=== PATIENT | female | born 2000 | race Caucasian/White ===

== ENCOUNTER 2024-05-10 16:20 | Emergency (ER) | payer OTHER, SELFPAY ==
[2024-05-10 16:23] VITALS: BP 116/73; PULSE 77; TEMP 36.6; O2SAT 98; BMI 21.5
--- NOTE | 2024-05-10 16:39 | ED_ITS ---
HPI - Abdominal Pain General Chief Complaint: Abdominal Pain Stated Complaint: ABD PAIN Time Seen by Provider: 05/10/24 16:25 Source: patient Mode of arrival: walk-in History of Present Illness HPI narrative: Patient is a 23-year-old female presents to the emergency department for the evaluation of cramping and bleeding that began yesterday. She states she had an IUD removed at the beginning of this month with her [facility] [employer]CTOR at [facility]. She states she had minimal bleeding immediately after the IUD was removed. She states yesterday she developed pelvic cramping and spotting and today she noticed heavier bleeding. No significant passage of clots. She states she is developing a headache and feels dizzy. 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 She states she has no history of heavy periods. No medications taken prior to arrival. No urinary symptoms. She feels nauseous but has not had any vomiting Related Data Previous Rx's ?Medication ?Instructions ?Recorded ketorolac 10 mg tablet 10 mg PO TID PRN pain #10 tabs 05/10/24 ondansetron 4 mg disintegrating 4 mg PO Q6H PRN nausea and 05/10/24 tablet vomiting #12 tabs Allergies Allergy/AdvReac Type Severity Reaction Status Date / Time oxytocin [From Pitocin] Allergy Mild Unknown Verified 05/10/24 16:28 Review of Systems ROS Constitutional Denies: fever or chills Ears, nose, mouth, and throat Denies: throat pain or nasal congestion Respiratory Denies: shortness of breath Gastrointestinal Reports: abdominal pain and nausea; Denies: vomiting Genitourinary Reports: pelvic pain and vaginal bleeding; Denies: painful urination or vaginal discharge Musculoskeletal Denies: back pain or neck pain Integumentary/Breast Denies: rash Neurological Denies: numbness in extremities or weakness in extremities Hematologic/Lymphatic Denies: easy bruising or easy bleeding Exam Narrative Exam Narrative: Gen.: Awake, alert, in no distress Head: Normocephalic, atraumatic ENT: Moist mucous membranes Respiratory: No respiratory distress Gastrointestinal: Abdomen is soft, nondistended and nontender to palpation Extremities: Moves extremities equally Psych: Normal mood and affect Neuro: No focal neuro deficit Skin: Warm, dry, intact Constitutional Vital Signs, click to edit/add: Last Vital Signs Temp 98 F 08/31/24 16:23 Pulse 77 05/10/24 16:23 Resp 16 05/10/24 16:23 BP 116/73 05/10/24 16:23 Pulse Ox 98 05/10/24 16:23 Course Vital Signs Vital signs: Vital Signs Temperature 98 F 05/10/24 16:23 Pulse Rate 77 05/10/24 16:23 Respiratory Rate 16 05/10/24 16:23 Blood Pressure 116/73 05/10/24 16:23 Pulse Oximetry 98 05/10/24 16:23 Temperature 98 F 05/10/24 16:23 Pulse Rate 77 05/10/24 16:23 Respiratory Rate 16 05/10/24 16:23 Blood Pressure 116/73 05/10/24 16:23 Pulse Oximetry 98 05/10/24 16:23 MDM - Abdominal Pain MDM Narrative Medical decision making narrative: Abdomen is soft and benign in the ER with no pain out of proportion on exam. Patient is hemodynamically stable. Laboratory studies show normal white blood cell count, normal hemoglobin, negative test. Patient was given IV fluids, Toradol, Zofran. She was given an outpatient requisition for an ultrasound for home. She was strongly encouraged to follow-up with her regional engagement consultant and return to the ER if symptoms change or worsen. Suspect withdrawal bleeding from removal of IUD. SUPERVISED APC VISIT, PHYSICIAN ATTESTATION: Based on the medical record the care appears appropriate. ? Medical Records Attestation: I reviewed the patient's medical records. Lab Data Attestation: I reviewed the patient's lab results. Labs: Lab Results 05/10/24 Range/Units 16:40 WBC 8.8 (4.0-11.0) 10^3/uL RBC 4.26 (4.20-5.40) 10^6/uL Hgb 12.8 (12.0-16.0) g/dL Hct 38.6 (36.0-48.0) % MCV 90.6 (81.0-99.0) fL MCH 30.0 (26.7-34.0) pg MCHC 33.2 (29.9-35.2) g/dL RDW 13.0 (11.0-15.0) % Plt Count 219 (150-450) 10^3/uL MPV 10.8 (9.5-13.5) fL Neut % (Auto) 61.6 (43.0-75.0) % Lymph % (Auto) 31.7 (20.5-60.0) % [place] % (Auto) 5.0 (1.7-12.0) % Eos % (Auto) 1.1 (0.9-7.0) % Baso % (Auto) 0.5 (0.2-2.0) % Neut # (Auto) 5.4 (1.4-6.5) 10^3/uL Lymph # (Auto) 2.8 (1.2-3.8) 10^3/uL [place] # (Auto) 0.4 (0.3-0.8) 10^3/uL Eos # (Auto) 0.1 (0.0-0.7) 10^3/uL Baso # (Auto) 0.0 (0.0-0.1) 10^3/uL Abs Immat Gran (auto) 0.01 (0.00-0.03) 10^3/uL Imm/Tot Granulo (auto) 0.1 (0.0-0.5) % PT 11.3 (9.0-11.6) sec INR 1.07 Sodium 139 (136-145) mmol/L Potassium 3.6 (3.5-5.1) mmol/L Chloride 104 (98-107) mmol/L Carbon Dioxide 27.1 (21.0-32.0) mmol/L Anion Gap 11.5 BUN 9.0 (7.0-18.0) mg/dL Creatinine 0.72 (0.55-1.02) mg/dL Est GFR ( Amer) >60 (>=60) Est GFR (Non-Af Amer) >60 (>=60) BUN/Creatinine Ratio 12.5 Glucose 82 (74-106) mg/dL Calcium 8.4 L (8.5-10.1) mg/dL Serum HCG, Qual Negative (NEGATIVE) Urine Color Lt. yellow (YELLOW) Urine Clarity Sl cloudy (CLEAR) Urine pH 8.0 (5.0-9.0) Ur Specific Rentz 1.015 (1.005-1.025) Urine Protein Negative (NEG/TRACE) mg/dL Urine Glucose (UA) Negative (NEGATIVE) mg/dL Urine Ketones Negative (NEGATIVE) mg/dL Urine Occult Blood Large A (NEGATIVE) Urine Nitrite Negative (NEGATIVE) Urine Bilirubin Negative (NEGATIVE) Urine Urobilinogen 0.2 (0.2-1.0) EU/dL Ur Leukocyte Esterase Negative (NEGATIVE) Urine RBC 20-50 A (0-2) #/HPF Urine WBC 0-2 A (NONE SEEN) #/HPF Ur Squamous Epith Cells Many A (NONE/RARE) #/LPF Ur Transition Epith Cell Moderate A (NONE SEEN) #/LPF Urine Crystals Seen A (None Seen) #/HPF Amorphous Sediment Few Urine Bacteria Small A (NONE SEEN) #/HPF Urine Casts None seen (NONE SEEN) #/LPF Urine Mucus None seen (NONE SEEN) Ur Culture Indicated? Yes Discharge Plan Discharge Chief Complaint: Abdominal Pain Clinical Impression: Pelvic pain, Vaginal bleeding Patient Disposition: Home, Self-Care Time of Disposition Decision: 17:33 Condition: Good Prescriptions / Home Meds: New ketorolac 10 mg tablet 10 mg PO TID PRN (Reason: pain) Qty: 10 0RF ondansetron 4 mg tablet,disintegrating 4 mg PO Q6H PRN (Reason: nausea and vomiting) Qty: 12 0RF Print Language: Estonian Instructions: Pelvic Pain in Women (ED) Additional Instructions: Call [phone]. [phone] to schedule your ultrasound as an outpatient and follow up with your regional engagement consultant next week Referrals: [facility] [Primary Care Provider] - 1 week
[2024-05-10] MEDS: 0.9 % SODIUM CHLORIDE 1,000 ML 1000 ML IV (16:47)
[2024-05-10] MEDS: ONDANSETRON PF 4 MG/2 ML VIAL IV (16:48)
[2024-05-10] MEDS: KETOROLAC TROMETHAMINE 30 MG/ML VIAL IVP (16:50)
--- NOTE | 2024-05-10 16:55 | PC.NURSE ---
pt to ED with c/o lower abd pain/cramping since yesterday. had IUD removed and states no period in last approx 5 years. states heavy bleeding with clots today. mild nausea. denies dizziness or weakness. pt expresses concern for blood loss d/t hx of anemia. per pt.
[2024-05-10 16:59] LABS: Basophils Percent Auto 0.5 % (0.2-2.0); Eosinophils Absolute Auto 0.1 10^3/uL (0.0-0.7); Eosinophils Percent Auto 1.1 % (0.9-7.0); Hematocrit 38.6 % (36.0-48.0); Hemoglobin 12.8 g/dL (12.0-16.0); Immature Granulocytes Abs Auto 0.01 10^3/uL (0.00-0.03); Immature Granulocytes Pct Auto 0.1 % (0.0-0.5); Lymphocytes Absolute Auto 2.8 10^3/uL (1.2-3.8); Lymphocytes Percent Auto 31.7 % (20.5-60.0); Mean Corpuscular HGB Conc 33.2 g/dL (29.9-35.2); Mean Corpuscular Volume 90.6 fL (81.0-99.0); Mean Platelet Volume 10.8 fL (9.5-13.5); Monocytes Absolute Auto 0.4 10^3/uL (0.3-0.8); Neutrophils Absolute Auto 5.4 10^3/uL (1.4-6.5); Neutrophils Percent Auto 61.6 % (43.0-75.0); Platelet Count 219 10^3/uL (150-450); Red Blood Count 4.26 10^6/uL (4.20-5.40); White Blood Count 8.8 10^3/uL (4.0-11.0)
[2024-05-10 17:10] LABS: Anion Gap 11.5; BUN Creatinine Ratio 12.5; Calcium 8.4 mg/dL (8.5-10.1); Carbon Dioxide 27.1 mmol/L (21.0-32.0); Chloride 104 mmol/L (98-107); Estimated GFR (African America >60 (>=60); Estimated GFR (Non-African Ame >60 (>=60); Glucose 82 mg/dL (74-106); Potassium 3.6 mmol/L (3.5-5.1); Sodium 139 mmol/L (136-145)
[2024-05-10 17:14] LABS: Bilirubin Urine NEGATIVE (NEGATIVE); Blood Urine LARGE (NEGATIVE); Clarity Urine SL CLOUDY (CLEAR); Color Urine LT. YELLOW (YELLOW); Glucose Urine UA NEGATIVE (NEGATIVE); Ketones Urine NEGATIVE (NEGATIVE); Leukocyte Esterase Urine NEGATIVE (NEGATIVE); Nitrite Urine NEGATIVE (NEGATIVE); Protein Urine NEGATIVE (NEG/TRACE); Specific Gravity Urine 1.015 (1.005-1.025); Urobilinogen Urine 0.2 EU/dL (0.2-1.0)
[2024-05-10 17:16] LABS: Urine Microscopic Indicated YES
[2024-05-10 17:18] LABS: INR 1.07; Prothrombin Time 11.3 sec (9.0-11.6)
[2024-05-10 17:20] LABS: HCG Qualitative NEGATIVE (NEGATIVE); Internal Control Within Normal Limits
[2024-05-10 17:25] LABS: RBC Urine 20-50 #/HPF (0-2); WBC Urine 0-2 #/HPF (NONE SEEN)
[2024-05-10 17:27] LABS: Crystals Seen? Seen #/HPF (None Seen); Mucus Urine NONE SEEN (NONE SEEN); Squamous Epithelial Cell Urine MANY #/LPF (NONE/RARE); Transitional Epi Cells Urine MODERATE #/LPF (NONE SEEN)
[2024-05-10 17:28] LABS: Amorphous Sediment Urine FEW; Cast Seen? NONE SEEN #/LPF (NONE SEEN); Urine Culture Indicated YES
[2024-05-10 17:29] LABS: Bacteria Urine SMALL #/HPF (NONE SEEN)
== END 2024-05-10 17:51 | disposition home or self-care (01) ==
PROVIDERS: Physician Assistant; Emergency Provider Emergency Medicine Emergency Medical Services
DX: R10.2 Pelvic and perineal pain (principal); N93.9 Abnormal uterine and vaginal bleeding, unspecified
CPT/HCPCS: 36415; 80048; 81001; 84703; 85025; 85610; 87086; 96361; 96374; 96375; 99284; J1885; J2405

== ENCOUNTER 2024-06-28 09:57 | Emergency (ER) | payer OTHER, SELFPAY ==
[2024-06-28 10:05] VITALS: BP 128/66; PULSE 80; TEMP 36.6; O2SAT 100; BMI 19.9
--- NOTE | 2024-06-28 10:36 | ED_ITS ---
HPI - Skin/Abscess/Foreign Bdy General Chief complaint: Skin/Abscess/Foreign Body Stated complaint: LUMP IN BREAST, LEFT Time Seen by Provider: 06/28/24 10:22 Source: patient Mode of arrival: walk-in History of Present Illness HPI narrative: The patient is a 24-year-old coming to us with a left-sided breast mass that she noticed over the last 2 to 3 days, she mentioned that she have no history of of any similar presentation she also does not have any family history of breast cancer The patient mentioned that her menstruation is 2 weeks from now according to her schedule She also denies any trauma fall or any other concerns Related Data Allergies Allergy/AdvReac Type Severity Reaction Status Date / Time oxytocin (From Pitocin) Allergy Mild Unknown Verified 05/10/24 16:28 Review of Systems ROS Status of ROS 10 or more systems reviewed and unremark able except as noted in history and below PFSH PFS Social History Little interest or pleasure in doing things: not at all Feeling down, depressed, or hopeless: not at all Exam Narrative Exam Narrative: Nurses notes and vital signs reviewed and patient is not hypoxic. Breast examination: The patient have a right breast examination was within normal there is no nipple retraction there is no redness or any masses in the left breast examination showed that the patient have a normal nipple there is a mass in the left upper quadrant that is nonfixed and mildly tender with no redness surrounding it and no hotness General: Well-appearing and in no apparent distress. Skin: Warm, dry, no pallor noted. No rash. Head: Normocephalic, atraumatic. Neck: Supple, non-tender. Eye: Pupils are equal, round and EOMI. No scleral icterus. Ears, Nose, Mouth, and Throat: TM are clear, no nasal mucosal hypertrophy. Oral mucosa is moist, no posterior oropharynx erythema, uvula is mid-line Cardiovascular: Regular Rate and Rhythm without murmur, gallop or rub. Respiratory: No accessory muscle use or respiratory distress. Lungs are clear to auscultation, no wheezing, rales or rhonchi Chest Wall: no tenderness Back: No midline thoracic or lumbar vertebral tenderness. No CVA tenderness Musculoskeletal: normal ROM, no calf or popliteal tenderness, no lower extremity edema/swelling GI: Abdomen is soft, non-distended. Normal bowel sounds. No masses appreciated. No tenderness to palpation. No rebound, guarding, or rigidity noted. Neurological: A&O x4. No cranial nerve dysfunction observed. No truncal ataxia. Moves all extremities. Sensation intact. Psychiatric: Cooperative and interactive. Normal mood and affect. Constitutional Vital Signs, click to edit/add: Last Vital Signs Temp 98 F 06/28/24 10:05 Pulse 80 06/28/24 10:05 Resp 16 06/28/24 10:05 BP 128/66 06/28/24 10:05 Pulse Ox 100 06/28/24 10:05 O2 Del Method Room Air 06/28/24 10:05 Course Vital Signs Vital signs: Vital Signs Temperature 98 F 06/28/24 10:05 Pulse Rate 80 06/28/24 10:05 Respiratory Rate 16 06/28/24 10:05 Blood Pressure 128/66 06/28/24 10:05 Pulse Oximetry 100 06/28/24 10:05 Oxygen Delivery Method Room Air 06/28/24 10:05 Temperature 98 F 06/28/24 10:05 Pulse Rate 80 06/28/24 10:05 Respiratory Rate 16 06/28/24 10:05 Blood Pressure 128/66 06/28/24 10:05 Pulse Oximetry 100 06/28/24 10:05 Oxygen Delivery Method Room Air 06/28/24 10:05 MDM - Skin/Abscess/Foreign Bdy MDM Narrative Medical decision making narrative: The patient right now presenting with a possible fibroadenoma But she still was instructed other than the supportive care she need to follow- up with her primary care doctor that she was assigned a new primary care to get a mammogram done as outpatient I did explain to the patient that although she does not have any risk factors and with her age it could be mostly fibroadenoma but she still need to do a mammogram as outpatient to rule out any cancer The patient is to follow up with primary care physician in next 2-3 days or to return to the emergency department should any of the signs or symptoms worsen or new symptoms develop. The patient agrees with the following Diagnosis and Treatment plan and the patient will be discharged home. Discharge Plan Discharge Chief Complaint: Skin/Abscess/Foreign Body Clinical Impression: Breast fibroadenoma Qualifiers: Laterality: left Qualified Code(s): D24.2 - Benign neoplasm of left breast Breast lump Qualifiers: Laterality: left Breast mass location: upper inner quadrant Qualified Code(s): N63.22 - Unspecified lump in the left breast, upper inner quadrant Patient Disposition: Home, Self-Care Time of Disposition Decision: 10:29 Condition: Good Print Language: British Instructions: Breast Self Exam for Women (ED), Breast Mass (ED) Referrals: [facility] [Primary Care Provider] - 1 week
--- OUTSIDE RECORDS SUMMARY | 2024-06-28 10:38 | XMS_ITS | CCD ---
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 Negative [facility] Calcium [Mass/volume] in Ser um or PlasmaOrdered By: Bronson Escobar on 03-18-2023 Calcium [Mass/Vol] 8.8 mg/dL 8.6-10.3 [facility] Carbon dioxide, total [Moles /volume] in Serum or PlasmaOrdered By: Bronson Escobar on 03-18-2023 CO2 [Moles/Vol] 27.9 mmol/L 21.0-31.0 [facility] Casts typing in urine sedime nt by light microscopyOrdered By: Bronson Escobar on 03-18-2023 Casts LM Nom (Urine sed) None seen [LPF] None Seen [facility] Chloride [Moles/volume] in S kyle or PlasmaOrdered By: Bronson Escobar on 03-18-2023 Chloride [Moles/Vol] 107 mmol/L 98-107 [facility] Color Auto (U)Ordered By: Sofia Escobar on 03-18-2023 Color (U) Red Yellow [facility] Creatinine [Mass/volume] in Serum or PlasmaOrdered By: Bronson Escobar on 03-18-2023 Creatinine [Mass/Vol] 0.65 mg/dL 0.60-1.20 [facility] Eosinophils Auto (Bld) [#/Vo l]Ordered By: Bronson Escobar on 03-18-2023 Eosinophils (Bld) [#/Vol] 0.1 10*3/uL 0.0-0.45 [facility] Eosinophils/100 WBC Auto (Bl d)Ordered By: Bronson Escobar on 03-18-2023 Eosinophils/100 WBC (Bld) 1.0 % . [facility] Erythrocyte distribution wid th Auto (RBC) [Ratio]Ordered By: Bronson Escobar on 03-18-2023 Erythrocyte distribution width (RBC) [Ratio] 13.8 % 11.9-15.3 [facility] Fungal cultureOrdered By: Sofia Escobar on 03-18-2023 Fungus identified Cx Nom (Unsp spec) [facility] Glucose [Mass/volume] in Ser um or PlasmaOrdered By: Bronson Escobar on 03-18-2023 Glucose [Mass/Vol] 83 mg/dL 70-100 [facility] Comment on above: ADA recommended refe rence rangeRandom Glucose Reference Range is dependent on time and content of last meal. Glucose of more than 200 mg/dL in a nonstressed, ambulatory subject supports the diagnosis of Diabetes Mellitus. HCG ( test) IA.rapi d Ql (U)Ordered By: Bronson Escobar on 03-18-2023 HCG ( test) Ql (U) Negative [facility] Hematocrit Auto (Bld) [Volum e fraction]Ordered By: Bronson Escobar on 03-18-2023 Hematocrit (Bld) [Volume fraction] 39.7 % 34.0-46.4 [facility] Hemoglobin [Mass/volume] in BloodOrdered By: Bronson Escobar on 03-18-2023 Hemoglobin (Bld) [Mass/Vol] 13.1 g/dL 11.8-15.4 [facility] Ketones Auto test strip (U) [Mass/Vol]Ordered By: Bronson Escobar on 03-18-2023 Ketones (U) [Mass/Vol] Negative Negative [facility] - Microbiology an d Antimicrobial susceptibilityOrdered By: Bronson Escobar on 03-18-2023 C. trachomatis DNA ELLY+probe Ql (Unsp spec) Positive Negative [facility] N. gonorrhoeae DNA ELLY+probe Ql (Unsp spec) Positive Negative [facility] Comment on above: Performed at: =[address] [id number] Director: Yanira Castaneda MD, Phone: [phone] Leukocytes [#/volume] correc steve for nucleated erythrocytes in Blood by Automated counOrdered By: Bronson Escobar on 03-18-2023 WBC corrected for nucl RBC Auto (Bld) [#/Vol] 7.8 10*3/uL 3.8-11.6 [facility] Lymphocytes Auto (Bld) [#/Vo l]Ordered By: Bronson Escobar on 03-18-2023 Lymphocytes (Bld) [#/Vol] 2.5 10*3/uL 1.00-4.8 [facility] Lymphocytes/100 WBC Auto (Bl d)Ordered By: Bronson Escobar on 03-18-2023 Lymphocytes/100 WBC (Bld) 32.4 % . [facility] MCH Auto (RBC) [Entitic mass ]Ordered By: Bronson Escobar on 03-18-2023 MCH (RBC) [Entitic mass] 29.4 pg 24.7-34.3 [facility] MCHC Auto (RBC) [Mass/Vol]Or dered By: Bronson Escobar on 03-18-2023 MCHC (RBC) [Mass/Vol] 33.1 g/dL 32.0-35.0 [facility] MCV Auto (RBC) [Entitic vol] Ordered By: Bronson Escobar on 03-18-2023 MCV (RBC) [Entitic vol] 88.8 fL 80-100 [facility] Monocytes Auto (Bld) [#/Vol] Ordered By: Bronson Escobar on 03-18-2023 Monocytes (Bld) [#/Vol] 0.4 10*3/uL 0.0-0.8 [facility] Monocytes/100 WBC Auto (Bld) Ordered By: Bronson Escobar on 03-18-2023 Monocytes/100 WBC (Bld) 5.3 % . [facility] Neutrophils Auto (Bld) [#/Vo l]Ordered By: Bronson Escobar on 03-18-2023 Neutrophils (Bld) [#/Vol] 4.6 10*3/uL 1.8-7.7 [facility] Neutrophils/100 WBC Auto (Bl d)Ordered By: Bronson Escobar on 03-18-2023 Neutrophils/100 WBC (Bld) 60.6 % . [facility] Nitrite Test strip Ql (U)Ord ered By: Bronson Escobar on 03-18-2023 Nitrite Ql (U) Negative Negative [facility] No Panel InformationOrdered By: Bronson Escobar on 03-18-2023 Estimated GFR (CKD-EPI) > 60.0 mL/Min [facility] Creatinine Clearance (Chem 95.10 [facility] Nucleated erythrocytes [Pres ence] in Blood by Automated countOrdered By: Bronson Escobar on 03-18-2023 Nucleated RBC Auto Ql (Bld) 0.1 /100{WBC} 0-0.5 [facility] Platelet mean volume Auto (B ld) [Entitic vol]Ordered By: Bronson Escobar on 03-18-2023 Platelet mean volume (Bld) [Entitic vol] 9.7 fL 6.3-10.7 [facility] Platelets Auto (Bld) [#/Vol] Ordered By: Bronson Escobar on 03-18-2023 Platelets (Bld) [#/Vol] 205 10*3/uL 150-450 [facility] Potassium [Moles/volume] in Serum or PlasmaOrdered By: Bronson Escobar on 03-18-2023 Potassium [Moles/Vol] 3.8 mmol/L 3.5-5.1 [facility] Protein Auto test strip (U) [Mass/Vol]Ordered By: Bronson Escobar on 03-18-2023 Protein (U) [Mass/Vol] 100 mg/dL Negative [facility] RBC Auto (Bld) [#/Vol]Ordere d By: Bronson Escobar on 03-18-2023 RBC (Bld) [#/Vol] 4.47 10*6/uL 3.60-5.00 [facility] Serum or plasma anion gap de terminationOrdered By: Bronson Escobar on 03-18-2023 Anion gap [Moles/Vol] 8.9 mmol/L 6.0-15.0 [facility] Sodium [Moles/volume] in Ser um or PlasmaOrdered By: Bronson Escobar on 03-18-2023 Sodium [Moles/Vol] 140 mmol/L 136-145 [facility] Specific gravity Auto test s trip (U) [Rel density]Ordered By: Bronson Escobar on 03-18-2023 Specific gravity (U) [Rel density] 1.021 1.001-1.03 0 [facility] Squamous epithelial cells de tection in urine sediment by light microscopyOrdered By: Bronson Escobar on 03-18-2023 Epithelial cells.squamous LM Ql (Urine sed) 10-19 [HPF] 0-2 [facility] Trichomonas vaginalis detect ion by wet preparationOrdered By: Bronson Escobar on 03-18-2023 T. vaginalis Wet prep Ql (Unsp spec) [facility] Urea nitrogen [Mass/volume] in Serum or PlasmaOrdered By: Bronson Escobar on 03-18-2023 Urea nitrogen [Mass/Vol] 10 mg/dL 7-25 [facility] Urine bacteria detection by automated methodOrdered By: Bronson Escobar on 03-18-2023 Bacteria Auto Ql (U) 1+ None Seen [facility] Urine clarity by refractomet ry automatedOrdered By: Bronson Escobar on 03-18-2023 Clarity Refractometry automated (U) Turbid Clear [facility] Urine culture routineOrdered By: Bronson Escobar on 03-18-2023 Bacteria identified Cx Nom (U) 2 Days [facility] Urine glucose measurement by automated test strip (mass/volume)Ordered By: Bronson Escobar on 03-18-2023 Glucose Auto test strip (U) [Mass/Vol] Normal mg/dL Normal [facility] Urine hemoglobin detection b y automated test stripOrdered By: Bronson Escobar on 03-18-2023 Hemoglobin Auto test strip Ql (U) 3+ Negative [facility] Urine leukocyte esterase det ection by automated test stripOrdered By: Bronson Escobar on 03-18-2023 Leukocyte esterase Auto test strip Ql (U) 4+ Negative [facility] Urobilinogen Auto test strip (U) [Mass/Vol]Ordered By: Bronson Escobar on 03-18-2023 Urobilinogen (U) [Mass/Vol] Normal mg/dL Normal [facility] WBC Auto (Bld) [#/Vol]Ordere d By: Bronson Escobar on 03-18-2023 WBC (Bld) [#/Vol] 7.8 10*3/uL 3.8-11.6 [facility] pH Auto test strip (U)Ordere d By: Bronson Escobar on 03-18-2023 pH (U) 7.5 [pH] 5.0-9.0 [facility] Thyrotropin [Units/volume] i n Serum or PlasmaOrdered By: Chloe Bourne on 03-09-2023 TSH Qn 9.90 m[IU]/L 0.45-5.33 [facility] Thyroxine (T4) free [Mass/vo lume] in Serum or PlasmaOrdered By: Chloe Bourne on 03-09-2023 Free T4 [Mass/Vol] 0.76 ng/dL 0.61-1.12 [facility] Alanine aminotransferase [En zymatic activity/volume] in Serum or PlasmaOrdered By: Chloe Bourne on 01-30-2023 ALT [Catalytic activity/Vol] 9 U/L 752 [facility] Albumin [Mass/volume] in Ser um or Plasma by Bromocresol green (BCG) dye binding methoOrdered By: Chloe Bourne on 01-30-2023 Albumin BCG dye [Mass/Vol] 4.3 g/dL 3.5-5.7 [facility] Alkaline phosphatase [Enzyma tic activity/volume] in Serum or PlasmaOrdered By: Chloe Bourne on 01-30-2023 ALP [Catalytic activity/Vol] 60 U/L 34-104 [facility] Aspartate aminotransferase [ Enzymatic activity/volume] in Serum or PlasmaOrdered By: Chloe Bourne on 01-30-2023 AST [Catalytic activity/Vol] 12 U/L 13-39 [facility] Basophils Auto (Bld) [#/Vol] Ordered By: Chloe Bourne on 01-30-2023 Basophils (Bld) [#/Vol] 0.0 10*3/uL 0.0-0.2 [facility] Basophils/100 WBC Auto (Bld) Ordered By: Chloe Bourne on 01-30-2023 Basophils/100 WBC (Bld) 0.6 % . [facility] Bilirubin.total [Mass/volume ] in Serum or PlasmaOrdered By: Chloe Bourne on 01-30-2023 Bilirubin [Mass/Vol] 0.4 mg/dL 0.3-1.0 [facility] C reactive protein [Mass/vol ume] in Serum or PlasmaOrdered By: Chloe Bourne on 01-30-2023 CRP [Mass/Vol] < 0.5 mg/dL 0.0-0.5 [facility] Calcium [Mass/volume] in Ser um or PlasmaOrdered By: Chloe Bourne on 01-30-2023 Calcium [Mass/Vol] 9.0 mg/dL 8.6-10.3 [facility] Carbon dioxide, total [Moles /volume] in Serum or PlasmaOrdered By: Chloe Bourne on 01-30-2023 CO2 [Moles/Vol] 28.0 mmol/L 21.0-31.0 [facility] Chloride [Moles/volume] in S kyle or PlasmaOrdered By: Chloe Bourne on 01-30-2023 Chloride [Moles/Vol] 106 mmol/L 98-107 [facility] Creatinine [Mass/volume] in Serum or PlasmaOrdered By: Chloe Bourne on 01-30-2023 Creatinine [Mass/Vol] 0.62 mg/dL 0.60-1.20 [facility] Eosinophils Auto (Bld) [#/Vo l]Ordered By: Chloe Bourne on 01-30-2023 Eosinophils (Bld) [#/Vol] 0.1 10*3/uL 0.0-0.45 [facility] Eosinophils/100 WBC Auto (Bl d)Ordered By: Chloe Bourne on 01-30-2023 Eosinophils/100 WBC (Bld) 2.0 % . [facility] Erythrocyte distribution wid th Auto (RBC) [Ratio]Ordered By: Chloe Bourne on 01-30-2023 Erythrocyte distribution width (RBC) [Ratio] 14.2 % 11.9-15.3 [facility] Erythrocyte sedimentation ra te by Photometric methodOrdered By: Chloe Bourne on 01-30-2023 ESR Photometric method (Bld) [Velocity] 10 mm/hr 0-19 [facility] Free thyroxine indexOrdered By: Chloe Bourne on 01-30-2023 Free T4 index Calc [Mass/Vol] 1.7 1.2-4.9 [facility] Globulin Calc (S) [Mass/Vol] Ordered By: Chloe Bourne on 01-30-2023 Globulin (S) [Mass/Vol] 2.2 g/dL [facility] Glucose [Mass/volume] in Ser um or PlasmaOrdered By: Chloe Bourne on 01-30-2023 Glucose [Mass/Vol] 81 mg/dL 70-100 [facility] Comment on above: ADA recommended refe rence rangeRandom Glucose Reference Range is dependent on time and content of last meal. Glucose of more than 200 mg/dL in a nonstressed, ambulatory subject supports the diagnosis of Diabetes Mellitus. HIV 1 and HIV-2 antibody ass ay with HIV-1 p24 antigen detectionOrdered By: Chloe Bourne on 01-30-2023 HIV 1+2 Ab+HIV1 p24 Ag IA Ql Non-Reactive Non Reactive [facility] Comment on above: HIV NegativeHIV-1/HI V-2 antibodies and HIV-1 p24 antigen were NOTdetected. There is no laboratory evidence of HIV infection.Performed at: [facility] [id number] Director: Damon Lam PhD, Phone: [phone] Hematocrit Auto (Bld) [Volum e fraction]Ordered By: Chloe Bourne on 01-30-2023 Hematocrit (Bld) [Volume fraction] 40.4 % 34.0-46.4 [facility] Hemoglobin [Mass/volume] in BloodOrdered By: Chloe Bourne on 01-30-2023 Hemoglobin (Bld) [Mass/Vol] 13.3 g/dL 11.8-15.4 [facility] Hepatitis B virus surface Ag [Presence] in Serum or Plasma by ImmunoassayOrdered By: Chloe Bourne on 01-30-2023 HBV surface Ag IA Ql Negative Negative [facility] Hepatitis C virus IgG Ab [Pr esence] in Serum or Plasma by ImmunoassayOrdered By: Chloe Bourne on 01-30-2023 HCV IgG IA Ql Non-Reactive Non Reactive [facility] Hepatitis C virus RNA [Units /volume] (viral load) in Serum or Plasma by ELLY with probOrdered By: Chloe Bourne on 01-30-2023 HCV RNA ELLY+probe Qn N/A [facility] Hepatitis C virus RNA [log u nits/volume] (viral load) in Serum or Plasma by ELLY withOrdered By: Chloe Bourne on 01-30-2023 HCV RNA ELLY+probe [Log units/Vol] N/A [facility] Leukocytes [#/volume] correc steve for nucleated erythrocytes in Blood by Automated counOrdered By: Chloe Bourne on 01-30-2023 WBC corrected for nucl RBC Auto (Bld) [#/Vol] 7.2 10*3/uL 3.8-11.6 [facility] Lymphocytes Auto (Bld) [#/Vo l]Ordered By: Chloe Bounre on 01-30-2023 Lymphocytes (Bld) [#/Vol] 2.0 10*3/uL 1.00-4.8 [facility] Lymphocytes/100 WBC Auto (Bl d)Ordered By: Chloe Bourne on 01-30-2023 Lymphocytes/100 WBC (Bld) 27.7 % . [facility] MCH Auto (RBC) [Entitic mass ]Ordered By: Chloe Bourne on 01-30-2023 MCH (RBC) [Entitic mass] 29.6 pg 24.7-34.3 [facility] MCHC Auto (RBC) [Mass/Vol]Or dered By: Chloe Bourne on 01-30-2023 MCHC (RBC) [Mass/Vol] 33.0 g/dL 32.0-35.0 [facility] MCV Auto (RBC) [Entitic vol] Ordered By: Chloe Bourne on 01-30-2023 MCV (RBC) [Entitic vol] 89.9 fL 80-100 [facility] Monocytes Auto (Bld) [#/Vol] Ordered By: Chloe Bourne on 01-30-2023 Monocytes (Bld) [#/Vol] 0.3 10*3/uL 0.0-0.8 [facility] Monocytes/100 WBC Auto (Bld) Ordered By: Chloe Bourne on 01-30-2023 Monocytes/100 WBC (Bld) 4.5 % . [facility] Neutrophils Auto (Bld) [#/Vo l]Ordered By: Chloe Bourne on 01-30-2023 Neutrophils (Bld) [#/Vol] 4.7 10*3/uL 1.8-7.7 [facility] Neutrophils/100 WBC Auto (Bl d)Ordered By: Chloe Bourne on 01-30-2023 Neutrophils/100 WBC (Bld) 65.2 % . [facility] No Panel InformationOrdered By: Chloe Bourne on 01-30-2023 Estimated GFR (CKD-EPI) > 60.0 mL/Min [facility] Free Thyroxine (T4) Direct 5.3 ug/dL 4.5-12.0 [facility] Hepatitis A IgM Antibody Negative Negative [facility] Hepatitis B Core IgM Antibody Negative Negative [facility] Hepatitis C Interpretation See comment . [facility] Comment on above: Not infected with HC V unless early or acute infection issuspected (which may be delayed in an immunocompromisedindividual), or other evidence exists to indicate HCVinfection.Performed at: - [facility] [id number] Director: Damon Lam PhD, Phone: [phone] Hepatitis C RNA Quantitative N/A [facility] Creatinine Clearance (Chem N/A [facility] Nucleated erythrocytes [Pres ence] in Blood by Automated countOrdered By: Chloe Bourne on 01-30-2023 Nucleated RBC Auto Ql (Bld) 0.1 /100{WBC} 0-0.5 [facility] Platelet mean volume Auto (B ld) [Entitic vol]Ordered By: Chloe Bourne on 01-30-2023 Platelet mean volume (Bld) [Entitic vol] 10.8 fL 6.3-10.7 [facility] Platelets Auto (Bld) [#/Vol] Ordered By: Chloe Bourne on 01-30-2023 Platelets (Bld) [#/Vol] 175 10*3/uL 150-450 [facility] Potassium [Moles/volume] in Serum or PlasmaOrdered By: Chloe Bourne on 01-30-2023 Potassium [Moles/Vol] 4.0 mmol/L 3.5-5.1 [facility] Protein [Mass/volume] in Ser um or PlasmaOrdered By: Chloe Bourne on 01-30-2023 Protein [Mass/Vol] 6.5 g/dL 6.4-8.9 [facility] RBC Auto (Bld) [#/Vol]Ordere d By: Chloe Bourne on 01-30-2023 RBC (Bld) [#/Vol] 4.50 10*6/uL 3.60-5.00 [facility] Reagin Ab [Presence] in Seru m by RPROrdered By: Chloe Bourne on 01-30-2023 Reagin Ab RPR Ql (S) Non-Reactive Non Reactive [facility] Comment on above: Performed at: - [address] [id number] Director: Damon Lam PhD, Phone: [phone] Serum or plasma albumin/glob ulin mass ratioOrdered By: Chloe Bourne on 01-30-2023 Albumin/Globulin [Mass ratio] 2.0 {ratio} [facility] Serum or plasma anion gap de terminationOrdered By: Chloe Bourne on 01-30-2023 Anion gap [Moles/Vol] 8.0 mmol/L 6.0-15.0 [facility] Sodium [Moles/volume] in Ser um or PlasmaOrdered By: Chloe Bourne on 01-30-2023 Sodium [Moles/Vol] 138 mmol/L 136-145 [facility] TSH DL <= 0.005 mIU/L QnOrde red By: Chloe Bourne on 01-30-2023 TSH Qn 11.600 m[IU]/L 0.450-4.50 0 [facility] Triiodothyronine (T3) [Mass/ volume] in Serum or PlasmaOrdered By: Chloe Bourne on 01-30-2023 T3 [Mass/Vol] 117 ng/dL 71-180 [facility] Comment on above: Performed at: [place] [id number] Director: Damon Lam PhD, Phone: [phone] Triiodothyronine (T3) resin uptake testOrdered By: Chloe Bourne on 01-30-2023 T3RU 33 % 24-39 [facility] Urea nitrogen [Mass/volume] in Serum or PlasmaOrdered By: Chloe Bourne on 01-30-2023 Urea nitrogen [Mass/Vol] 9 mg/dL 7-25 [facility] WBC Auto (Bld) [#/Vol]Ordere d By: Chloe Bourne on 01-30-2023 WBC (Bld) [#/Vol] 7.2 10*3/uL 3.8-11.6 [facility] Automated erythrocytes count in urine sediment (number/area)Ordered By: Luis E Cordero on 06-30-2022 RBC Auto (Urine sed) [#/Area] 1-2 [HPF] 0-4 [facility] Automated leukocytes count i n urine sediment (number/area)Ordered By: Luis E Cordero on 06-30-2022 WBC Auto (Urine sed) [#/Area] 20-49 [HPF] 0-4 [facility] Bilirubin Test strip Ql (U)O rdered By: Luis E Cordero on 06-30-2022 Bilirubin Ql (U) Negative Negative [facility] Color Auto (U)Ordered By: Celina Cordero on 06-30-2022 Color (U) Yellow Yellow [facility] HCG ( test) IA.rapi d Ql (U)Ordered By: BRENDA DAS on 06-30-2022 HCG ( test) Ql (U) Negative [facility] Ketones Auto test strip (U) [Mass/Vol]Ordered By: Luis E Cordero on 06-30-2022 Ketones (U) [Mass/Vol] Trace Negative Fi [facility] - UrinalysisOrder ed By: Luis E Cordero on 06-30-2022 Hyaline casts LM Ql (Urine sed) 9-19 [LPF] 0-8 [facility] Nitrite Test strip Ql (U)Ord ered By: Luis E Cordero on 06-30-2022 Nitrite Ql (U) Negative Negative [facility] Protein Auto test strip (U) [Mass/Vol]Ordered By: Luis E Cordero on 06-30-2022 Protein (U) [Mass/Vol] Trace mg/dL Negative [facility] Specific gravity Auto test s trip (U) [Rel density]Ordered By: Luis E Cordero on 06-30-2022 Specific gravity (U) [Rel density] 1.025 1.001-1.03 0 [facility] Squamous epithelial cells de tection in urine sediment by light microscopyOrdered By: Luis E Cordero on 06-30-2022 Epithelial cells.squamous LM Ql (Urine sed) 5-9 [HPF] 0-2 [facility] Urine bacteria detection by automated methodOrdered By: Luis E Cordero on 06-30-2022 Bacteria Auto Ql (U) 1+ None Seen [facility] Urine clarity by refractomet ry automatedOrdered By: Luis E Cordero on 06-30-2022 Clarity Refractometry automated (U) Cloudy Clear [facility] Urine glucose measurement by automated test strip (mass/volume)Ordered By: Luis E Cordero on 06-30-2022 Glucose Auto test strip (U) [Mass/Vol] Normal mg/dL Normal [facility] Urine hemoglobin detection b y automated test stripOrdered By: Luis E Cordero on 06-30-2022 Hemoglobin Auto test strip Ql (U) 2+ Negative [facility] Urine leukocyte esterase det ection by automated test stripOrdered By: Luis E Cordero on 06-30-2022 Leukocyte esterase Auto test strip Ql (U) 4+ Negative [facility] Urobilinogen Auto test strip (U) [Mass/Vol]Ordered By: Luis E Cordero on 06-30-2022 Urobilinogen (U) [Mass/Vol] Normal mg/dL Normal [facility] pH Auto test strip (U)Ordere d By: Luis Esandi Cordero on 06-30-2022 pH (U) 6.5 [pH] 5.0-9.0 [facility] AMYLASEon 06-19-2022 Amylase [Catalytic activity/Vol] 42 U/L Normal 25-115 [facility] Comment on above: Performed By: #### A MY, CMP, LIPA #### [facility] [address] [place] [address] Dr. Sendy Bowie CBC AUTO DIFFon 06-19-2022 BASO # 0.0 103/ul Normal 0.0-0.1 [facility] Comment on above: Performed By: #### C BC #### [facility] [address] [place] [address] Dr. Sendy Bowie Basophils/100 WBC (Bld) 0.4 % Normal 0.2-2.0 [facility] Comment on above: Performed By: #### C BC #### [facility] [address] [place] [address] Dr. Sendy Bowie EO # 0.1 103/ul Normal 0.0-0.7 [facility] Comment on above: Performed By: #### C BC #### [facility] [address] [place] [address] Dr. Sendy Bowie Eosinophils/100 WBC (Bld) 0.8 % Critically low 0.9-7.0 [facility] Comment on above: Performed By: #### C BC #### [facility] [address] [place] [address] Dr. Sendy Bowie Erythrocyte distribution width (RBC) [Ratio] 15.1 % Critically high 11.0-15.0 [facility] Comment on above: Performed By: #### C BC #### [facility] [address] [place] [address] Dr. Sendy Bowie Hematocrit (Bld) [Volume fraction] 39.9 % Normal 36.0-48.0 [facility] Comment on above: Performed By: #### C BC #### [facility] [address] [place] [address] Dr. Sendy Bowie Hemoglobin (Bld) [Mass/Vol] 12.8 g/dL Normal 12.0-16.0 [facility] Comment on above: Performed By: #### C BC #### [facility] [address] [place] [address] Dr. Sendy Bowie IG # 0.02 10e3/ul Normal 0.00-0.03 [facility] Comment on above: Performed By: #### C BC #### [facility] [address] [place] [address] Dr. Sendy Bowie IG % 0.3 % Normal 0.0-0.5 [facility] Comment on above: Performed By: #### C BC #### [facility] [address] [place] [address] Dr. Sendy Bowie LYMPH # 2.3 103/ul Normal 1.2-3.8 [facility] Comment on above: Performed By: #### C BC #### [facility] [address] [place] [address] Dr. Sendy Bowie Lymphocytes/100 WBC (Bld) 29.5 % Normal 20.5-60.0 [facility] Comment on above: Performed By: #### C BC #### [facility] [address] [place] [address] Dr. Sendy Bowie MANUAL DIFF REQ NO Normal [facility] Comment on above: Performed By: #### C BC #### [facility] [address] [place] [address] Dr. Sendy Bowie MCH (RBC) [Entitic mass] 28.4 pg Normal 26.7-34.0 [facility] Comment on above: Performed By: #### C BC #### [facility] [address] [place] [address] Dr. Sendy Bowie MCHC (RBC) [Mass/Vol] 32.1 g/dL Normal 29.9-35.2 [facility] Comment on above: Performed By: #### C BC #### [facility] [address] [place] [address] Dr. Sendy Bowie MCV (RBC) [Entitic vol] 88.7 fL Normal 81.0-99.0 [facility] Comment on above: Performed By: #### C BC #### [facility] [address] [place] [address] Dr. Sendy Bowie MONO # 0.5 103/ul Normal 0.3-0.8 [facility] Comment on above: Performed By: #### C BC #### [facility] [address] [place] [address] Dr. Sendy Bowie Monocytes/100 WBC (Bld) 6.3 % Normal 1.7-12.0 [facility] Comment on above: Performed By: #### C BC #### [facility] [address] [place] [address] Dr. Sendy Bowie NEUT # 4.8 103/ul Normal 1.4-6.5 [facility] Comment on above: Performed By: #### C BC #### [facility] [address] [place] [address] Dr. Sendy Bowie Neutrophils/100 WBC (Bld) 62.7 % Normal 43.0-75.0 [facility] Comment on above: Performed By: #### C BC #### [facility] [address] [place] [address] Dr. Sendy Bowie Platelet mean volume (Bld) [Entitic vol] 10.7 fL Normal 9.5-13.5 [facility] Comment on above: Performed By: #### C BC #### [facility] [address] [place] [address] Dr. Sendy Bowie PLT 268 103/ul Normal 150-450 [facility] Comment on above: Performed By: #### C BC #### [facility] [address] [place] [address] Dr. Sendy Bowie RBC 4.50 106/ul Normal 4.20-5.40 [facility] Comment on above: Performed By: #### C BC #### [facility] [address] [place] [address] Dr. Sendy Bowie WBC 7.7 103/ul Normal 4.0-11.0 [facility] Comment on above: Performed By: #### C BC #### [facility] [address] [address] [address] Sendy Bowie CULTURE URINEon 06-19-2022 CULTURE URINE Culture Observations : LIGHT GROWTH OF MIXED GENITAL OSEAS. NO POTENTIAL PATHOGENS SEEN. Normal [facility] Comment on above: Performed By: #### U RCX #### [facility] [address] [address] [address] Sendy Bowie ER URINE PROFILEon 2 Bilirubin Ql (U) SMALL Abnormal NEGATIVE [facility] Comment on above: Performed By: #### E RUR, PREGU, UMICRO #### [facility] [address] [place] [address] Dr. Sendy Bowie Clarity (U) SL CLOUDY Abnormal CLEAR [facility] Comment on above: Performed By: #### E RUR, PREGU, UMICRO #### [facility] [address] [place] [address] Dr. Sendy Bowie Color (U) LT. YELLOW Normal YELLOW [facility] Comment on above: Performed By: #### E RUR, PREGU, UMICRO #### [facility] [address] [place] [address] Dr. Sendy Bowie ERUEMMA A micrscopic examina tion will be performed if indicated. Normal [facility] Comment on above: Performed By: #### E RUR, PREGU, UMICRO #### [facility] [address] [address] [address] Sendy Bowie Glucose Ql (U) Negative Normal NEGATIVE [facility] Comment on above: Performed By: #### E RUR, PREGU, UMICRO #### [facility] [address] [address] [address] Sendy Bowie Hemoglobin Ql (U) MODERATE Abnormal NEGATIVE [facility] Comment on above: Performed By: #### E RUR, PREGU, UMICRO #### [facility] [address] [place] [address] Dr. Sendy Bowie Ketones Ql (U) TRACE Abnormal NEGATIVE [facility] Comment on above: Performed By: #### E RUR, PREGU, UMICRO #### [facility] [address] [place] [address] Dr. Sendy Bowie LEUKOCYTES MODERATE Abnormal NEGATIVE [facility] Comment on above: Performed By: #### E RUR, PREGU, UMICRO #### [facility] [address] [place] [address] Dr. Sendy Bowie Nitrite Ql (U) Negative Normal NEGATIVE [facility] Comment on above: Performed By: #### E RUR, PREGU, UMICRO #### [facility] [address] [place] [address] Dr. Sendy Bowie pH (U) 6.5 [pH] Normal 5-9 [facility] Comment on above: Performed By: #### Dacia ROSENTHAL PREGU, UMICRO #### [facility] [address] [place] [address] Dr. Sendy Bowie Protein (U) [Mass/Vol] 30 mg/dL Abnormal NEGAT MAKAYLA/ TRACE [facility] Comment on above: Performed By: #### Dacia ROSENTHAL PREGU, UMICRO #### [facility] [address] [place] [address] Dr. Sendy Bowie SPEC GRAVITY 1.020 Normal 1.005-<=1. 025 [facility] Comment on above: Performed By: #### Dacia ROSENTHAL PREGU, UMICRO #### [facility] [address] [place] [address] Dr. Sendy Bowie UR MICRO IND INDICATED Normal [facility] Comment on above: Performed By: #### E RUR, PREGU, UMICRO #### [facility] [address] [place] [address] Dr. Sendy Bowie Urobilinogen Qn (U) 1.0 {Bhaskar'U}/dL Normal 0.2 - 1. 0 [facility] Comment on above: Performed By: #### Dacia RUR, PREGU, UMICRO #### [facility] [address] [place] [address] Dr. Sendy Bowie LIPASEon 06-19-2022 Lipase [Catalytic activity/Vol] 54.0 U/L Critically low 73.0-393.0 [facility] Comment on above: Performed By: #### A MY, CMP, LIPA #### [facility] [address] [address] [address] Sendy Bowie URon 06-19-2022 , QUAL Negative Normal NEGATIVE [facility] Comment on above: Performed By: #### E RUR, PREGU, UMICRO #### [facility] [address] [address] [address] Sendy Bowie PROF 14(COMP METB)on 022 Albumin [Mass/Vol] 3.9 g/dL Normal 3.4-5.0 [facility] Comment on above: Performed By: #### A MY, CMP, LIPA #### [facility] [address] [place] [address] Dr. Sendy Bowie Albumin/Globulin [Mass ratio] 1.1 {ratio} Normal [facility] Comment on above: Performed By: #### A MY, CMP, LIPA #### [facility] [address] [place] [address] Dr. Sendy Bowie ALP [Catalytic activity/Vol] 76 U/L Normal 46-116 [facility] Comment on above: Performed By: #### A MY, CMP, LIPA #### [facility] [address] [place] [address] Dr. Sendy Bowie ALT [Catalytic activity/Vol] 15 U/L Normal 14-59 [facility] Comment on above: Performed By: #### A MY, CMP, LIPA #### [facility] [address] [place] [address] Dr. Sendy Bowie Anion gap [Moles/Vol] 10.7 mmol/L Normal [facility] Comment on above: Performed By: #### A MY, CMP, LIPA #### [facility] [address] [place] [address] Dr. Sendy Bowie AST [Catalytic activity/Vol] 10 U/L Critically low 15-37 [facility] Comment on above: Performed By: #### A MY, CMP, LIPA #### [facility] [address] [address] [address] Sendy Bowie Bilirubin [Mass/Vol] 0.4 mg/dL Normal 0.2-1.0 [facility] Comment on above: Performed By: #### A MY, CMP, LIPA #### [facility] [address] [place] [address] Dr. Sendy Bowie Calcium [Mass/Vol] 8.9 mg/dL Normal 8.5-10.1 [facility] Comment on above: Performed By: #### A MY, CMP, LIPA #### [facility] [address] [place] [address] Dr. Sendy Bowie Chloride [Moles/Vol] 107 mmol/L Normal 98-107 [facility] Comment on above: Performed By: #### A MY, CMP, LIPA #### [facility] [address] [place] [address] Dr. Sendy Bowie CO2 [Moles/Vol] 27.2 mmol/L Normal 21.0-32.0 [facility] Comment on above: Performed By: #### A MY, CMP, LIPA #### [facility] [address] [place] [address] Dr. Sendy Bowie Creatinine [Mass/Vol] 0.69 mg/dL Normal 0.55-1.02 [facility] Comment on above: Performed By: #### A MY, CMP, LIPA #### [facility] [address] [place] [address] Dr. Sendy Bowie EGFR-AF BELIZEAN >60 Normal >=60 [facility] Comment on above: Performed By: #### A MY, CMP, LIPA #### [facility] [address] [place] [address] Dr. Sendy Bowie EGFR-NON AF BELIZEAN >60 Normal >=60 [facility] Comment on above: Performed By: #### A MY, CMP, LIPA #### [facility] [address] [place] [address] Dr. Sendy Bowie Globulin (S) [Mass/Vol] 3.5 g/dL Normal T [facility] Comment on above: Performed By: #### A MY, CMP, LIPA #### [facility] [address] [address] [address] Sendy Bowie Glucose [Mass/Vol] 89 mg/dL Normal 74-106 [facility] Comment on above: Performed By: #### A MY, CMP, LIPA #### [facility] [address] [place] [address] Dr. Sendy Bowie Potassium [Moles/Vol] 3.8 mmol/L Normal 3.5-5.1 [facility] Comment on above: Performed By: #### A MY, CMP, LIPA #### [facility] [address] [place] [address] Dr. Sendy Bowie Protein [Mass/Vol] 7.4 g/dL Normal 6.4-8.2 [facility] Comment on above: Performed By: #### A MY, CMP, LIPA #### [facility] [address] [place] [address] Dr. Sendy Bowie Sodium [Moles/Vol] 141 mmol/L Normal 136-145 [facility] Comment on above: Performed By: #### A MY, CMP, LIPA #### [facility] [address] [place] [address] Dr. Sendy Bowie Urea nitrogen [Mass/Vol] 12.0 mg/dL Normal 7.0-18.0 [facility] Comment on above: Performed By: #### A MY, CMP, LIPA #### [facility] [address] [place] [address] Dr. Sendy Bowie Urea nitrogen/Creatinine [Mass ratio] 17.3 mg/mg Normal [facility] Comment on above: Performed By: #### A MY, CMP, LIPA #### [facility] [address] [place] [address] Dr. Sendy Bowie URINE MICROSCOPIC ONLYon BACTERIA MODERATE Abnormal NONE SEEN [facility] Comment on above: Performed By: #### E RUR, PREGU, UMICRO #### [facility] [address] [address] [address] Sendy Bowie Bacteria identified Cx Nom (U) INDICATED Normal [facility] Comment on above: Performed By: #### E RUR, PREGU, UMICRO #### [facility] [address] [place] [address] Dr. Sendy Bowie CAST NONE SEEN Normal NONE SEEN [facility] Comment on above: Performed By: #### E RUR, PREGU, UMICRO #### [facility] [address] [address] [address] Sendy Bowie Crystals LM Nom (Urine sed) NONE SEEN Normal NONE SEEN [facility] Comment on above: Performed By: #### E RUR, PREGU, UMICRO #### [facility] [address] [place] [address] Dr. Sendy Bowie Epithelial cells LM Ql (Urine sed) MODERATE Abnormal NONE SEEN /RARE [facility] Comment on above: Performed By: #### E RUR, PREGU, UMICRO #### [facility] [address] [place] [address] Dr. Sendy Bowie MUCOUS MODERATE Abnormal NONE SEEN [facility] Comment on above: Performed By: #### Dacia RUR PREGU, UMICRO #### [facility] [address] [place] [address] Dr. Sendy Bowie RBC 5-10 Abnormal 0-2 [facility] Comment on above: Performed By: #### E RUR, PREGU, UMICRO #### [facility] [address] [place] [address] Dr. Sendy Bowie WBC 10-20 Abnormal NONE SEEN [facility] Comment on above: Performed By: #### E RUR, PREGU, UMICRO #### [facility] [address] [place] [address] Dr. Sendy Bowie Urine culture routineOrdered By: Norm Crane on 05-01-2022 Bacteria identified Cx Nom (U) 2 Days [facility] - Microbiology an d Antimicrobial susceptibilityOrdered By: Lui Bailon on 04-30-2022 S. pyogenes Ag Ql (Throat) Isolated 2 Days [facility] Automated erythrocytes count in urine sediment (number/area)Ordered By: Norm Crane on 04-29-2022 RBC Auto (Urine sed) [#/Area] 0-1 [HPF] 0-4 [facility] Automated leukocytes count i n urine sediment (number/area)Ordered By: Norm Crane on 04-29-2022 WBC Auto (Urine sed) [#/Area] 20-49 [HPF] 0-4 [facility] Basophils Auto (Bld) [#/Vol] Ordered By: Norm Crane on 04-29-2022 Basophils (Bld) [#/Vol] 0.0 10*3/uL 0.0-0.2 [facility] Basophils/100 WBC Auto (Bld) Ordered By: Norm Crane on 04-29-2022 Basophils/100 WBC (Bld) 0.7 % . [facility] Bilirubin Test strip Ql (U)O rdered By: Norm Crane on 04-29-2022 Bilirubin Ql (U) Negative Negative [facility] Blood hemoglobin measurement (mass/volume)Ordered By: Norm Crane on 04-29-2022 Hemoglobin (Bld) [Mass/Vol] 13.6 g/dL 11.8-15.4 [facility] Blood leukocytes automated c ount (number/volume)Ordered By: Norm Crane on 04-29-2022 WBC (Bld) [#/Vol] 5.7 10*3/uL 4.5-11.0 [facility] Body fluid albumin measureme nt (mass/volume)Ordered By: Norm Crane on 04-29-2022 Albumin (Body fld) [Mass/Vol] 4.4 g/dL 3.2-5.5 [facility] Color Auto (U)Ordered By: Bowen Crane on 04-29-2022 Color (U) Yellow Yellow [facility] Creatinine and Glomerular fi ltration rate.predicted panel (S/P/Bld)Ordered By: Norm Crane on 04-29-2022 Creatinine [Mass/Vol] 0.86 mg/dL 0.44-1.03 [facility] Eosinophils Auto (Bld) [#/Vo l]Ordered By: Norm Crane on 04-29-2022 Eosinophils (Bld) [#/Vol] 0.0 10*3/uL 0.0-0.45 [facility] Eosinophils/100 WBC Auto (Bl d)Ordered By: Norm Crane on 04-29-2022 Eosinophils/100 WBC (Bld) 0.4 % . [facility] Erythrocyte distribution wid th Auto (RBC) [Ratio]Ordered By: Norm Crane on 04-29-2022 Erythrocyte distribution width (RBC) [Ratio] 15.7 % 11.9-15.3 [facility] Estimated glomerular filtrat ion rate (GFR) non- AmericanOrdered By: Norm Crane on 04-29-2022 GFR/1.73 sq M.predicted among non-blacks MDRD (S/P/Bld) [Vol rate/Area] > 60 mL/Min [facility] Globulin Calc (S) [Mass/Vol] Ordered By: Norm Crane on 04-29-2022 Globulin (S) [Mass/Vol] 3.1 g/dL [facility] HCG ( test) IA.rapi d Ql (U)Ordered By: Norm Crane on 04-29-2022 HCG ( test) Ql (U) Negative [facility] Hematocrit Auto (Bld) [Volum e fraction]Ordered By: Norm Crane on 04-29-2022 Hematocrit (Bld) [Volume fraction] 41.2 % 34.0-46.4 [facility] Ketones Auto test strip (U) [Mass/Vol]Ordered By: Norm Crane on 04-29-2022 Ketones (U) [Mass/Vol] 1+ Negative [facility] - Hematology and Cell countsOrdered By: Norm Crane on 04-29-2022 Nucleated RBC/100 WBC (Bld) [Ratio] 0.0 % 0-0.5 [facility] - UrinalysisOrder ed By: Norm Crane on 04-29-2022 Hyaline casts LM Ql (Urine sed) 0-8 [LPF] 0-8 [facility] Lymphocytes Auto (Bld) [#/Vo l]Ordered By: Norm Crane on 04-29-2022 Lymphocytes (Bld) [#/Vol] 0.4 10*3/uL 1.00-4.8 [facility] Lymphocytes/100 WBC Auto (Bl d)Ordered By: Norm Crane on 04-29-2022 Lymphocytes/100 WBC (Bld) 7.5 % . [facility] MCH Auto (RBC) [Entitic mass ]Ordered By: Norm Crane on 04-29-2022 MCH (RBC) [Entitic mass] 27.6 pg 24.7-34.3 [facility] MCHC Auto (RBC) [Mass/Vol]Or dered By: Norm Crane on 04-29-2022 MCHC (RBC) [Mass/Vol] 33.0 g/dL 32.0-35.0 [facility] MCV Auto (RBC) [Entitic vol] Ordered By: Norm Crane on 04-29-2022 MCV (RBC) [Entitic vol] 83.6 fL 80-100 [facility] Monocytes Auto (Bld) [#/Vol] Ordered By: Norm Crane on 04-29-2022 Monocytes (Bld) [#/Vol] 0.7 10*3/uL 0.0-0.8 [facility] Monocytes/100 WBC Auto (Bld) Ordered By: Norm Crane on 04-29-2022 Monocytes/100 WBC (Bld) 12.1 % . [facility] Neutrophils Auto (Bld) [#/Vo l]Ordered By: oNrm Crane on 04-29-2022 Neutrophils (Bld) [#/Vol] 4.5 10*3/uL 1.8-7.7 [facility] Neutrophils/100 WBC Auto (Bl d)Ordered By: Norm Crane on 04-29-2022 Neutrophils/100 WBC (Bld) 79.3 % . [facility] Nitrite Test strip Ql (U)Ord ered By: Norm Crane on 04-29-2022 Nitrite Ql (U) Negative Negative [facility] No Panel InformationOrdered By: Norm Crane on 04-29-2022 Estimated GFR () > 60 mL/Min [facility] Comment on above: GFR estimated refere nce range: According to KDOQI guidelines, <60 ml/min/1.73m2 is sufficient to diagnose a patient with chronic kidney disease. Pharmacy Creatinine Clearance (Chem N/A [facility] Platelet mean volume Auto (B ld) [Entitic vol]Ordered By: Norm Crane on 04-29-2022 Platelet mean volume (Bld) [Entitic vol] 9.4 fL 6.3-10.7 [facility] Platelets Auto (Bld) [#/Vol] Ordered By: Norm Crane on 04-29-2022 Platelets (Bld) [#/Vol] 212 10*3/uL 150-450 [facility] Protein Auto test strip (U) [Mass/Vol]Ordered By: Norm Crane on 04-29-2022 Protein (U) [Mass/Vol] Negative Negative [facility] Protein [Mass/volume] in Ser um or PlasmaOrdered By: Norm Crane on 04-29-2022 Protein [Mass/Vol] 7.5 g/dL 6.1-7.9 [facility] RBC Auto (Bld) [#/Vol]Ordere d By: Norm Crane on 04-29-2022 RBC (Bld) [#/Vol] 4.93 10*6/uL 3.60-5.00 [facility] Serum or plasma alanine owen otransferase measurement without P-5'-P (enzymatic activiOrdered By: Norm Crane on 04-29-2022 ALT No additional P-5'-P [Catalytic activity/Vol] 11 U/L 10-60 [facility] Serum or plasma albumin/glob ulin mass ratioOrdered By: Norm Crane on 04-29-2022 Albumin/Globulin [Mass ratio] 1.4 {ratio} [facility] Serum or plasma alkaline kathy sphatase measurement (enzymatic activity/volume)Ordered By: Norm Crane on 04-29-2022 ALP [Catalytic activity/Vol] 74 U/L 32-92 [facility] Serum or plasma aspartate am inotransferase measurement (enzymatic activity/volume)Ordered By: Norm Crane on 04-29-2022 AST [Catalytic activity/Vol] 17 U/L 10-42 [facility] Serum or plasma calcium coleman urement (mass/volume)Ordered By: Norm Crane on 04-29-2022 Calcium [Mass/Vol] 9.7 mg/dL 8.2-10.2 [facility] Serum or plasma chloride héctor surement (moles/volume)Ordered By: Norm Crane on 04-29-2022 Chloride [Moles/Vol] 103 mmol/L 95-114 [facility] Serum or plasma glucose coleman urement (mass/volume)Ordered By: Norm Crane on 04-29-2022 Glucose [Mass/Vol] 112 mg/dL 70-100 [facility] Comment on above: ADA recommended refe rence range Random Glucose Reference Range is dependent on time and content of last meal. Glucose of more than 200 mg/dL in a nonstressed, ambulatory subject supports the diagnosis of Diabetes Mellitus. ADA recommended refe rence rangeRandom Glucose Reference Range is dependent on time and content of last meal. Glucose of more than 200 mg/dL in a nonstressed, ambulatory subject supports the diagnosis of Diabetes Mellitus. Serum or plasma potassium me asurement (moles/volume)Ordered By: Norm Crane on 04-29-2022 Potassium [Moles/Vol] 3.6 mmol/L 3.5-5.1 [facility] Serum or plasma sodium measu rement (moles/volume)Ordered By: Norm Crane on 04-29-2022 Sodium [Moles/Vol] 137 mmol/L 136-146 [facility] Serum or plasma total biliru bin measurement (mass/volume)Ordered By: Norm Crane on 04-29-2022 Bilirubin [Mass/Vol] 0.9 mg/dL 0.3-1.2 [facility] Serum or plasma total carbon dioxide measurement (moles/volume)Ordered By: Norm Crane on 04-29-2022 CO2 [Moles/Vol] 22.1 mmol/L 22.0-30.0 [facility] Serum or plasma urea nitroge n measurement (mass/volume)Ordered By: Norm Crane on 04-29-2022 Urea nitrogen [Mass/Vol] 6 mg/dL 9-23 [facility] Specific gravity Auto test s trip (U) [Rel density]Ordered By: Norm Crane on 04-29-2022 Specific gravity (U) [Rel density] 1.014 1.001-1.03 0 [facility] Squamous epithelial cells de tection in urine sediment by light microscopyOrdered By: Norm Crane on 04-29-2022 Epithelial cells.squamous LM Ql (Urine sed) 1-2 [HPF] 0-2 [facility] Urine bacteria detection by automated methodOrdered By: Norm Crane on 04-29-2022 Bacteria Auto Ql (U) None seen None Seen [facility] Urine clarity by refractomet ry automatedOrdered By: Norm Crane on 04-29-2022 Clarity Refractometry automated (U) Clear Clear [facility] Urine glucose measurement by automated test strip (mass/volume)Ordered By: Norm Crane on 04-29-2022 Glucose Auto test strip (U) [Mass/Vol] Normal mg/dL Normal [facility] Urine hemoglobin detection b y automated test stripOrdered By: Norm Crane on 04-29-2022 Hemoglobin Auto test strip Ql (U) Negative Negative [facility] Urine leukocyte esterase det ection by automated test stripOrdered By: Norm Crane on 04-29-2022 Leukocyte esterase Auto test strip Ql (U) 3+ Negative [facility] Urobilinogen Auto test strip (U) [Mass/Vol]Ordered By: Norm Crane on 04-29-2022 Urobilinogen (U) [Mass/Vol] Normal mg/dL Normal [facility] pH Auto test strip (U)Ordere d By: Norm Crane on 04-29-2022 pH (U) 7.0 [pH] 5.0-9.0 [facility] COVID-19 SOFIAOrdered By: Tito Bailon on 04-28-2022 SARS-CoV+SARS-CoV-2 (COVID-19) Ag IA.rapid Ql (Resp) Positive Negative [facility] Comment on above: This is a duplicate Bibiana SARS Antigen (KASIA) result to be used for statistical tracking purpose only. Laboratory - Microbiology an d Antimicrobial susceptibilityOrdered By: Libia Delgado on 02-23-2022 S. pyogenes Ag Ql (Throat) Isolated 2 Days [facility] ED Note-Physicianon 12-17-19 ED Note-Physician Basic Information Time Seen: Jose Elias Aguilar PA-C 12/14/2021 14:32 Chief Complaint abdominal pain x3 days with vomiting and diarrhea History of Present Illness 21-year-old female comes to the ED for evaluation of abdominal pain with nausea vomiting diarrhea. She points to epigastric area of tenderness. She complains of burning sensation epigastrium upper esophagus. No fever or chills. No lower abdominal pain, urinary complaints. No previous abdominal surgeries. Denies any concern for with IUD. Denies any prior treatments. No known sick contacts, recent travel or bad food. Review of Systems A 10 point review of systems is negative except as noted above. Medical and Surgical History: Reviewed and noted Social history: Lives at home Tobacco: Denies Physical Exam Vitals & Measurements T: 36.5 ?C(Oral) HR: 72(Monitored) RR: 18 BP: 107/69 SpO2: 100% HT: 152.4 cm HT: 152.40 cm WT: 59.0 kg WT: 59 kg BMI: 25.4 Nurses notes and vital signs reviewed and patient is not hypoxic. General: The patient appears well and in no significant distress Patient is resting comfortably on the exam bed. Skin: Warm, dry, no pallor noted. Head: Atraumatic. Neck: No JVD. Eye: Normal conjunctiva. Ears, Nose, Mouth, and Throat: Moist mucous membranes Cardiovascular: Strong distal pulses. Chest wall: Respiratory: Respirations are nonlabored. Lungs clear to auscultation. Back: Normal range of motion, no CVA tenderness. Musculoskeletal: Normal ROM with no gross deformity. Gastrointestinal: Mild epigastric tenderness. No guarding, rebound or rigidity. No distention. Remainder of the abdomen is nontender. Abdomen soft throughout. Negative Roman's. Negative McBurney's. Urological: Neurological: Awake and alert. No focal deficits. Follows commands. GCS 15. Psychiatric: Cooperative. Medical Decision Making Laboratory studies reviewed and noted. Patient is feeling improved after IV fluids, IV Pepcid, Zofran and Phenergan. She is now taking oral fluids. Vomiting has been controlled. She will be discharged home with Zofran and Pepcid. She is to follow-up with her PCP. Patient was encouraged to return to the ED if symptoms worsen or change. Assessment/Plan Dehydration (E86.0: Dehydration) Nausea and vomiting (R11.2: Nausea with vomiting, unspecified) Orders: famotidine, 40 mg = 1 tab(s), Oral, Once a day (at bedtime), X 5 day(s), # 5 tab(s), Refills(s) 0 famotidine, 20 mg = 2 mL, Soln-IV, IV Push, Once, Stop date 12/14/21 15:36:00 EDT, STAT, Start date 12/14/21 15:36:00 EDT, 12/14/21 15:36:00 EDT ondansetron, 4 mg = 2 mL, Injection, IV Push, Once, Stop date 12/14/21 14:48:00 EDT, STAT, Start date 12/14/21 14:48:00 EDT, 12/14/21 14:48:00 EDT ondansetron, 4 mg = 1 tab(s), Oral, TID, # 15 tab(s), Refills(s) 0 promethazine, 12.5 mg = 0.5 mL, Injection, IV Push, Once, Stop date 12/14/21 15:36:00 EDT, STAT, Start date 12/14/21 15:36:00 EDT, 12/14/21 15:36:00 EDT Sodium Chloride 0.9% intravenous solution, 1,000 mL, Soln-IV, IV, Once, Stop date 12/14/21 14:48:00 EDT, STAT, Start date 12/14/21 14:48:00 EDT, mL/hr, Infuse over 61, minute(s) Automated Diff Basic Metabolic Panel CBC w/ Auto Diff eGFR Extra SST Tube Hepatic Function Panel Lipase Level UA With Cult Reflex Medications Administered Given famotidine 10 mg/mL IV Reyna, 20 mg, IV Push [id number] [F], 1000 mL, IV ondansetron 4 mg/2 mL Inj, 4 mg, IV Push promethazine 25 mg/mL Inj, 12.5 mg, IV Push Disposition Plan Patient Discharge Condition Disposition: Discharged home Condition: Improved and stable Counseled: Patient and/or family were counseled to workup, results, treatment plan and follow-up recommendations Discharge Prescription List Prescriptions Pepcid 40 mg Tab, 40 mg= 1 tab(s), Oral, Once a day (at bedtime) Zofran ODT 4 mg Tab-Dis, 4 mg= 1 tab(s), Oral, TID Follow-up With When Contact Information Milton Macario In 3 days 12/17/2021 EDT [address] [facility] [place] [address]- Business (1) Additional Instructions: Patient Education Viral Gastroenteritis, Adult Attestation Patient seen and evaluated by the physician office manager executive assistant. Attending physician was present in the emergency department and supervised care. This visit was performed by both the physician and an APC. I performed all aspects of the MDM as documented. This report was transcribed using voice recognition software. Every effort was made to ensure accuracy, however, inadvertently computerized director hematology mistakes may be present. Appropriate healthcare PPE was used in evaluating this patient. The patient was placed in a mask. The healthcare provider was wearing mask, gloves, and utilizing proper hand hygiene. All equipment was properly cleansed. Problem List/Past Medical History Ongoing No qualifying data Historical No qualifying data Medications Inpatient No active inpatient medications Home Pepcid 40 mg Tab, 40 mg= 1 tab(s), Oral (more content not included)... Normal [facility] Comment on above: Result Comment: Elec tronically Signed By: Jose Elias Aguilar PA-C\.br\Date and Time Signed: 12/14/21 16:56 EDT\.br\Electronically Co-Signed By: Clive Carranza DO\.br\Date and Time Co-Signed: 12/16/21 06:55 EDT Coding Summary.on 12-15-2021 Coding Summary. [id number] Gh0bW w+PGhlYWQ+HN4HVZKyI14ieRA buF4GR8uQLX0MZKWWMAFRUL4H DM1hoSZ3HIfgO3PahnRk MgvzcPBbYU36KQl2KLT2bRaeU JmzkJ5nnRYoD2l5DjKsZF38zR 39USzcACWnOeC2AzMlfrhqjIA y V0ipShYziDUaPfh+PHRhYmxlI HdpZHRoPScxMDAlJyBzdHlsZT 1xGx9aBLApCQZbjAhtlGOtOaL j s7paLMYdIIgcLL1mcMjyB0Nxd FX1PUVro6v5Ru10zMX+PHRkIH Q6sMznIArzr058LsVto9wyPKB 3 pGYxIVsjJVG5I41pw6D3KZNaU TIkJFU9vCT4gQ8ukUfzokojQ9 ZkdHAkWfN9GND2bMQwcC0mdPr n rbzkaM8xUok+H23SHB5VRFZAG H8TFao4D2TbWghavBM+PC90YW HaVD97cNOswSQet5gbhVl3QyG w BSMaJBV2yItnXZqqy2YkUPSmJ 51vsMDfn6K0SNYkhPpjhHQjIo CpzLN4qA2aQKszbyskc5jqwfx n Cimsm4kxha53zL42P40jGKmaP RUsNUN9ONPxNZJppNsrow2beM 9wIi8+OBthl1ymp9uyfCl5KxE w OUPgleNgzYcgTSV0u8DkVx04E 0TvpDnkw3OkRqs2zk84aGUad5 I4dCK2NPkqCAMaqX0aDJsyIdF 6 PIGqTbJcwL62pSPjVHrgUz9jv AoupPtyJQ5eYBWfoiacOWViqH 6rPBYfbMQqrUceCE7bZIRergl m h661RlEoCNA0XYBriQKxM3Eya T3kHhWsVQShDTOuY5GsxMYyRN toD010DBoeBuR5HMJorwLfN0N s YTAwgXfuMwX8h2H1It7Lq9Dun yhqRDS4IGdqFVX4PvO5MmUtKf H6X3OsNcm8OECjoHtuXO3bV3Z h BLHoctuqiqdkaEX3CZZgNJKqb W13rITxECfnSf1vs9E0n209TG RuNUSqqB02Bp5gqXosZCDnqUQ U uO2camdtn8jdrxidVrKeXABfG An3ZRj3MSHbiYmxCrEyZQI7Cj E7BWE8eKDmzY7hiApvkuuutI7 w Oyc+F05xvQ2zFYM1ENG5zpceB FApssXgPI37AF62Y5QfRnrseU FibGU+FLWimeWiuWmsVD1iCtP j d7ffp8XsCOjoH8YkZFEdFLtsI ee8FOWfMCV1vNQ3dJ1eUHErPY ojm1X2oMQ5O1ZkxyQupr6wq1f s PWShMNehA65pbPHny0M9KYTah WW6ZUYobMdrObOirS81Rjp+PG ThvOqhw8IkNbtvw0fdg7djcIo 9 LcDbCXIppaPumHgqSMC8v5AjH e14M46dPRrmAVIaRMCcROHeUZ IkxRyfoh1hmY2mCt8+PGNvbCB 3 fFJ1jH6wZRVzRkP6DSdaS826L oEbyDGkSsjbh0gsn9soiDh2Nf QdGRZtqdTdvQnmQCT6w0PwNw8 8 W28fDFftMEUlRLMgSCVuWJChc Xsltl2hvJ6rQv7+EM9nl4yhrz 12aH50jHE+XPKbZAU2eKioLWr w PJSlsE5qMGasCxJ6ESBgLsCai T74oIPxCAtcEg5owNmszHcmEP 4gCFUdagkqe885WxKle2rxGNW w mRYqUFvwJKH7Y36ro9O0FBOxD YUkOKJ9vCN2fR9xoSwvkudwxO CttDzgdpLhhHpwPBckDGokA12 6 IHRvcDsnPlBhdGllbnQgTmFtZ By6P6GdZky7ICCydNzcHT9ntF CfVCmcYc8pfJdilPouBC4tLMY p yhebo283PcUfm3tgMXSyyYZfP RzfVLL0D08nh3V2HXEcRIQcYZ H2pYE1rA3alMcknyzpwGSttPx g ojHnuZxyPDapDQneF741NKYht FpgIfHllmXvNSDtxIB8DO73HW 69cHQuc7J4gAA3V8WyVGNusiw t rfloiCZ2IYDbKBMsqA95Xd9rp FgqIf6zJJDkDYF5HMSflFDkZ6 CwrM1uPeTjFAQmPNKmX8WmlDN t KJqwU365GPgpKmX5NSMmmvXkD 5LuQFNqwZsfNyD3w5Z9Xv0SC4 P7BX12SZ07nSFgu7B1qRM0S7L h DKJrmjewsuqwmZN1ZDHzBEIug P70Uy9vjUcuSy5xRYIcTNE6RE EndLYeU2VefN1dDrYeZNBqPVY w Z2PlmQIjZNfrD237UTymMmK0R OFktjXyJ0ItDUQugCpiPmN5a3 I5Rr7QGVm9QC76VD29kYEki8J 5 nZL5U4CsGYDikxfftuyqmLC3H MYvIJKewU49If4lxPcbWf7eBJ TqQRN7XSHwqTCaJ8NehU8nWzD j NMFmOUWxZ8CayIYsLFprG394F SesNmB2AJFsawXjW9QfTCOjpZ etOwX0w6C3Hy1YOIYoOY38BJP 5 yRW1WS85WI58I9StHdewfHCsa +PHRhYmxlIHdpZHRoPScxMD HyDnWpuYpdBF0jBm1sEZRxGAR v dWyvmADzUaXpg5grOBYgMWerZ N4frDitP2TjjWK1MNSnq0m9Xw 30E56sB8HryEJ+VRIerHX4mOM 0 vI6gMzUkKvT9WQevS810HyYgy EXpGrtmi7dge5vtxFc5BrX6QU AbgcUgvKlsMQF5f5KgHq80M07 s IHdpZHRoPSIxNSUiIHZhbGlnb t1mwH0pYn6+CXJayKO1eLJ3mK 2aCnYwQdP8WRmmA474IxLrtMD v Iczvc3tmh5iteGy6IqBcDKFop pPjjQacJKB3g2GoJf89B3KcdB lpr7SvRcl1yv33hZQrk7A8jIW 9 U5OjFZQosempqMIrhElrJQ9gZ KYvhqyoKDChjB5fDQQrO7a0Ee ZtDtB7GJgrB2UcfcU4USLpuKX g GRarVMM5N88rj5N4PRCpOBGcK SD1sYP4hT4ahZcuedeisLPnwZ oawoNaoNbpFDmoCZgkJ624PKV v oDjtIFIwrJ5vIRKzqWXgoHsgT Q3uOSArrzypJvAGS9NQXXFRSx dFTEEgUDwvdGQ+YVXeVLP9gOt l XXhkYDBsfS2iDVRiX2c5CnBlK hM3VKhtO6UjMUJvgittFj26lU 6uLtEpJkO9NHcuT5EeczL1UKF w gCKyFNgyYKE4P60pa5Q4IERgJ OUeTSK8bHC3wD4zpAxoesvruR UbzFlbrsAhrMmbGXpiABidR37 6 CHBffPsgQmQ9DcM1EjZzBIS0E 6RdJhc0PLWydOkhJZ6xpPLxDN xzLv5pgYcwsBgdVY6yOQBfvoo w NNHfuS0jGMJioIFjjAjqNM3tT VNdptlxq416HmYvXHU9PLGudY AwS8QdeO7iOzVsEJXdKDGmM8R l yQQrNWfsR715BMptWsZ9FNLhz xAvD4LwSRYjcBrzDrC2r8L4Hw 4yMCBZZWFyczwvdGQ+PHRkIHN 0 tVngUQqxVGQfxC0zVMAfL0d9K yVvXqM3KBczU6QkSYLhkenaMj 10oR8gGoLxPsN9IRlfX1FblfS 6 EFGscVJeZGnlIKO4P39fw0I0V OPfLXJbSBU2yAX3zS2pcEfpjk ogbGVmdDsgdmVydGljYWwtYWx p T646WCNrfIypJiXbzFCtDIoct GQ+BXZdNAX0yOyjAXpkFBUpnE 0tIENnX4q8QvHzHqB9VBxoO6H h TIJktdagEq36dE6mUxIiQlC7H DvrJ4LftdR0RHCtxECxOWalMY N1W90qr2V3AJNiPXKyXXP4wPP 4 tJ5veDrfokknqUJoaOssuvTnj AvfHUulIDftS258NIIrsVumWf KyQXShPC0quBxdfGG+ZC17wl3 8 E7PzDnelUra1THNbDJH8gXY7m I9xXFHmGXwip1M5cHT9Z0Tswz Rsrb6fs3dyCIQsSSmbN99tsGE w v1W4BJCzcDB4MXYeuVsqCvFgo G93Oyc+PYPsmRusy4YdBcvmf3 pxa2jjlPl5AgBdVEYxaqMddQb u NGQ5i3VjQl25R79kNHfwFAKnS QRzTDRwKFEukBhevn4byP9bDc 8+TJYyzST9jKG7xB5jNfIyLtZ 2 YRwjZ782QdZnwSVhAvnui3dmn 6apcSs2WsKqJJWrtmKshDmiSO H2q0YrNs41V9BhjWzyj4CgWwy 0 si86lNApm3C2cYQ2Q3EaXWJqb ojhrOPnaZliIZ3mGQWhjeyrED SloQ8tFIVeX8o3AsEkDwO9WJv u Q7VaoeE2CQTqoAOhKCTryGENy Y7tdztbv6dmtognSlUyFBEpQI j2MTx1MBYnuWiwUfQdSJE8WqQ 2 ZOB2dYGpvX6djQphymjirE9dD yc+FZu7z4isaDIgRI8obKD9JD 49ZT19bXJoa9I4jVP9M4GyCQQ p hrteywjafFP0BDUtOTRiqM15U b8dkVcpWf1pOBIoAET1RMWgjY VcA0UowX2qCmXuHADpPRCzY8T l kBIuGFneK821ZZijYxY5QMTtj cLrX3KzEJSxuMuvEqS2v6F1Gd 4BPR54TD10DB21xQAnr0Q3mHW 9 R4QfMOZwttkyrfirtYA3ULJjH MYahQ39Dz5gzBsjNx1sNQZxFA C9EFOmyVTjC1UjlT1cNqMxVKN w XRRrG3IjkJUyYTbzH083OCjuL vE4FOOokrVbA1IcZWXkgPnuMl C3k1I8Qy3CBp63CA47ER58zVP g z7Z2ySL6M2FfLIJernxrpnlru IU3YNWkTPPokU11Ju5agLuaUc 9mZWWqYED3OHHspYXrV6XqoD7 y VoMzQTGpXSQdF6KpnMKpYQtfV 055WVbdXsW8TXZfqxKuN8MhIO DvlJodGeW0t9S9Nm9HKKmwhcd 8 L4IlFpjufDT+LX93WNRnFX75l QVaiKThy4nmiDt0RfWxNCUrOX I3xObcCVgwi5OmGNDoJ32duDH w c2U6 (more content not included)... Normal [facility] Auto Diffon 12-14-2021 Basophils/100 WBC (Bld) 0.2 % Normal 0.0-2.0 F [facility] Comment on above: Order Comment: Order Added by Discern Expert. Performed By: #### 2 291154, 0026403, 90756785, 0291189, 9812473, 9011179 #### [facility] [address] [place] [address] 57639 Basophils/Leukocytes Auto (Bld) [Pure # fraction] 0.0 E9/L Normal 0.0-0.2 [facility] Comment on above: Order Comment: Order Added by Discern Expert. Performed By: #### 2 366154, 6034892, 31781868, 6403819, 8566590, 9119127 #### [facility] [address] [place] [address] 43717 Eosinophils/100 WBC (Bld) 1.0 % Normal 0.0-8.0 [facility] Comment on above: Order Comment: Order Added by Discern Expert. Performed By: #### 2 249017, 6358584, 93027691, 5894880, 9770094, 8119360 #### [facility] [address] [place] [address] 71246 Eosinophils/Leukocytes Auto (Bld) [Pure # fraction] 0.1 E9/L Normal 0.0-0.5 [facility] Comment on above: Order Comment: Order Added by Hossein Expert. Performed By: #### 2 257267, 9638235, 56425178, 6184389, 2288365, 5579797 #### [facility] [address] [place] [address] 66093 Lymphocytes/100 WBC (Bld) 14.1 % Normal 14.0-50.0 [facility] Comment on above: Order Comment: Order Added by Hossein Expert. Performed By: #### 2 538610, 8802424, 50664717, 5813499, 7531697, 9205170 #### [facility] [address] [place] [address] 30018 Lymphocytes/Leukocytes Auto (Bld) [Pure # fraction] 1.5 E9/L Normal 1.0-4.0 [facility] Comment on above: Order Comment: Order Added by Hossein Expert. Performed By: #### 2 521572, 6799348, 09244891, 7214815, 1512149, 7811196 #### [facility] [address] [place] [address] 24394 Monocytes/100 WBC (Bld) 5.1 % Normal 4.0-14.0 [facility] Comment on above: Order Comment: Order Added by Hossein Expert. Performed By: #### 2 255318, 6293807, 57903945, 0407109, 4458689, 9695696 #### [facility] [address] [place] [address] 50247 Monocytes/Leukocytes Auto (Bld) [Pure # fraction] 0.5 E9/L Normal 0.2-1.0 [facility] Comment on above: Order Comment: Order Added by Discern Expert. Performed By: #### 2 065086, 5347028, 50408737, 7378113, 5825834, 7209740 #### [facility] [address] [place] [address] 50016 Neutrophils/100 WBC (Bld) 79.6 % High 36.0-75.0 [facility] Comment on above: Order Comment: Order Added by Discern Expert. Performed By: #### 2 006654, 8827742, 49167516, 9854682, 7678889, 2932128 #### [facility] [address] [place] [address] 06479 Neutrophils/Leukocytes Auto (Bld) [Pure # fraction] 8.5 E9/L High 2.0-7.5 [facility] Comment on above: Order Comment: Order Added by Discern Expert. Performed By: #### 2 030517, 8885373, 38761663, 2529577, 6004816, 3410075 #### [facility] [address] [place] [address] 13503 BMPon 12-14-2021 Creatinine [Mass/Vol] 0.6 mg/dL Normal 0.5-1.3 [facility] Comment on above: Performed By: #### 2 259065, 7640682, 24361787, 8538130, 6635113, 1613332 #### [facility] [address] [place] [address] 74257 Urea nitrogen [Mass/Vol] 16 mg/dL Normal 5-21 [facility] Comment on above: Performed By: #### 2 192298, 8498966, 61098873, 7828582, 6565979, 4499317 #### [facility] [address] [place] [address] Urea nitrogen/Creatinine [Mass ratio] 27 No Units High 10-20 [facility] Comment on above: Performed By: #### 2 941373, 5246384, 90550752, 0909698, 9315197, 2318845 #### [facility] [address] [place] [address] Anion gap [Moles/Vol] 16 mmol/L Normal 6-16 [facility] Comment on above: Performed By: #### 2 173125, 0317027, 51297397, 4043079, 0634259, 3169149 #### [facility] [address] [place] [address] Calcium [Mass/Vol] 9.7 mg/dL Normal 8.9-11.1 [facility] Comment on above: Performed By: #### 2 781455, 7877440, 41261025, 9711800, 6834035, 5652805 #### [facility] [address] [place] [address] Chloride [Moles/Vol] 105 mmol/L Normal 101-111 [facility] Comment on above: Performed By: #### 2 852297, 9585427, 03678392, 0209852, 5363194, 9883282 #### [facility] [address] [place] [address] CO2 [Moles/Vol] 19 mmol/L Low 21-31 [facility] Comment on above: Performed By: #### 2 785784, 7909671, 42233071, 4296744, 7324227, 5162024 #### [facility] [address] [place] [address] Glucose [Mass/Vol] 80 mg/dL Normal 55-199 [facility] Comment on above: Result Comment: If t his glucose result represents a fasting glucose, interpretation should refer to the following reference range: 55-99 mg/dL Performed By: #### 2 746044, 8503293, 84836850, 3256843, 1972073, 4983153 #### [facility] [address] [place] [address] Potassium [Moles/Vol] 3.5 mmol/L Normal 3.5-5.3 [facility] Comment on above: Performed By: #### 2 393546, 7891270, 47474096, 8775744, 1370144, 8760030 #### [facility] [address] [place] [address] Sodium [Moles/Vol] 136 mmol/L Normal 135-145 [facility] Comment on above: Performed By: #### 2 791542, 9347426, 34909194, 6386052, 0706457, 6090306 #### [facility] [address] [place] [address] 99697 CBC w/ Auto Diffon Erythrocyte distribution width (RBC) [Ratio] 15.2 % High 10.9-14.2 [facility] Comment on above: Performed By: #### 2 944529, 4253399, 74045162, 4167141, 1682051, 3747142 #### [facility] [address] [place] [address] 49403 Hematocrit (Bld) [Volume fraction] 38.6 % Normal 34.0-46.0 [facility] Comment on above: Performed By: #### 2 817712, 6047093, 09244095, 5726093, 6141775, 5194392 #### [facility] [address] [place] [address] 71412 Hemoglobin (Bld) [Mass/Vol] 13.4 g/dL Normal 12.0-16.0 [facility] Comment on above: Performed By: #### 2 669327, 0472417, 90108985, 5543131, 1738396, 4627970 #### [facility] [address] [place] [address] MCH (RBC) [Entitic mass] 27.6 pg Normal 27.0-34.0 [facility] Comment on above: Performed By: #### 2 044827, 2606507, 93877633, 8590810, 5960654, 2800895 #### [facility] [address] [place] [address] 16754 MCHC (RBC) [Mass/Vol] 34.7 g/dL Normal 31.4-36.0 [facility] Comment on above: Performed By: #### 2 804465, 1568609, 23422347, 4718743, 8051767, 4297621 #### [facility] [address] [place] [address] 16688 MCV (RBC) [Entitic vol] 79.6 fL Low 80.0-100.0 F [facility] Comment on above: Performed By: #### 2 983766, 2395739, 28891625, 0988812, 6223807, 5066940 #### [facility] [address] [place] [address] 86324 Platelet mean volume (Bld) [Entitic vol] 9.1 fL Normal 6.4-10.8 [facility] Comment on above: Performed By: #### 2 303067, 3377229, 49069206, 1503407, 2509869, 2610538 #### [facility] [address] [place] [address] 50158 Platelets (Bld) [#/Vol] 229.0 E9/L Normal 150. 0-500. 0 [facility] Comment on above: Performed By: #### 2 450967, 1674041, 57293164, 1794273, 3053002, 5212497 #### [facility] [address] [place] [address] 73035 RBC (Bld) [#/Vol] 4.8 E12/L Normal 4.3-5.9 [facility] Comment on above: Performed By: #### 2 352089, 3688683, 14313483, 5758953, 5240236, 7956941 #### [facility] [address] [place] [address] 22068 WBC corrected for nucl RBC Auto (Bld) [#/Vol] 10.6 E9/L Normal 4.0-11.0 [facility] Comment on above: Performed By: #### 2 509852, 9881273, 10890299, 8331366, 9706774, 0847349 #### [facility] [address] [place] [address] CHEMISTRYOrdered By: SYSTEM SYSTEM on 12-14-2021 Albumin [Mass/Vol] 4.7 g/dL Normal 3.3 - 5.0 gm/dL [facility] Albumin/Globulin [Mass ratio] 1.3 {ratio} Normal 1.1 - 2.2 [facility] ALP [Catalytic activity/Vol] 102 [iU]/d High 21 - 98 Int._Unit/ L [facility] ALT No additional P-5'-P [Catalytic activity/Vol] 18 [iU]/d Normal 6 - 46 Int._Unit/ L [facility] Anion gap [Moles/Vol] 16 mmol/L Normal 6 - 16 mEq/L [facility] AST [Catalytic activity/Vol] 20 [iU]/d Normal 5 - 43 Int._Unit/ L [facility] Bilirubin [Mass/Vol] 1.1 mg/dL Normal 0.0 - 1 .1 mg/dL [facility] Bilirubin.direct [Mass/Vol] mg/dL Normal 0.1 - 0.4 mg/dL [facility] Bilirubin.indirect [Mass or moles/Vol] Unable to Calculate mg/dL Invalid Interpretation Code 0.1 - 0.9 mg/dL [facility] Calcium [Mass/Vol] 9.7 mg/dL Normal 8.9 - 11. 1 mg/dL [facility] Chloride [Moles/Vol] 105 mmol/L Normal 101 - 1 11 mmol/L [facility] CO2 [Moles/Vol] 19 mmol/L Low 21 - 31 mmol/L [facility] Creatinine [Mass/Vol] 0.6 mg/dL Normal 0.5 - 1.3 mg/dL [facility] GFR/1.73 sq M.predicted among blacks MDRD (S/P/Bld) [Vol rate/Area] mL/min/1.73 m2 Normal >=59mL/min /1.73 m2 [facility] Chem S GFR/1.73 sq M.predicted among non-blacks MDRD (S/P/Bld) [Vol rate/Area] mL/min/1.73 m2 Normal >=59mL/min /1.73 m2 [facility] Chem S Globulin (S) [Mass/Vol] 3.5 g/dL Normal 1.4 - 4.0 gm/dL [facility] Glucose [Mass/Vol] 80 mg/dL Normal 55 - 199 mg/dL [facility] Remisol Lipase [Catalytic activity/Vol] 24 U/L Normal 13 - 58 unit/L [facility] Potassium [Moles/Vol] 3.5 mmol/L Normal 3.5 - 5.3 mmol/L [facility] Protein [Mass/Vol] 8.2 g/dL High 6.0 - 7.8 gm/dL [facility] Sodium [Moles/Vol] 136 mmol/L Normal 135 - 145 mmol/L [facility] Urea nitrogen [Mass/Vol] 16 mg/dL Normal 5 - 21 mg/dL [facility]isol Urea nitrogen/Creatinine [Mass ratio] 27 mg/mg High 10 - 20 [facility] Consent for Treatmenton Consent for Treatment [id number]:12 7 Normal [facility] Discharge Instructionson Discharge Instructions [id number]:12 7 Normal [facility] ED Clinical Summaryon 2021 ED Clinical Summary (Inserted Image. Eduarda ble to display) [place] [id number] ED Clinical Summary Person Information Name: VIOLETA BERNA [place] Age: 21 Years : 2000 Sex: Female Language: Spanish PCP: Milton Macario III, DO Marital Status: Single Phone: [phone] Visit Id: Visit Reason: Diarrhea; Vomiting; Abdominal pain; ABD PAIN, VOMITTING Speciality: Acuity: 3 Enc Type: Emergency Med Service: Emergency Arrival: 12/14/2021 14:28:36 Discharge: 12/14/2021 17:08:17 LOS: 000 02:40 Checkin: 12/14/2021 14:28:36 Checkout: 12/14/2021 17:08:17 Dispo Type: Home (Routine DC) EVENTS: Event Name Event Status Request Date/Time Start Date/Time Complete Date/Time Arrive Complete 12/14/2021 14:28:36 12/14/2021 14:28:36 12/14/2021 14:28:36 Document Home Meds Request 12/14/2021 14:28:36 Triage Complete 12/14/2021 14:28:36 12/14/2021 14:39:33 12/14/2021 14:39:33 Bed Assign Complete 12/14/2021 14:32:48 12/14/2021 14:32:48 12/14/2021 14:32:48 Dr Exam Complete 12/14/2021 14:32:48 12/14/2021 14:32:57 12/14/2021 14:32:57 RN Exam Complete 12/14/2021 14:32:48 12/14/2021 14:43:57 12/14/2021 14:43:57 Registration Complete 12/14/2021 14:32:57 12/14/2021 14:45:02 12/14/2021 14:45:02 Dr Exam Complete 12/14/2021 14:33:35 12/14/2021 14:33:35 12/14/2021 14:33:35 Reg Complete Request 12/14/2021 14:45:02 Reg Bed Request Complete 12/14/2021 14:45:02 12/14/2021 14:45:02 12/14/2021 14:45:02 Meds Admin Complete 12/14/2021 14:48:29 12/14/2021 14:58:00 Pending Labs Complete 12/14/2021 14:48:29 12/14/2021 16:43:23 Lab Complete 12/14/2021 14:48:29 12/14/2021 16:43:23 Urine Collect Complete 12/14/2021 14:48:29 12/14/2021 16:43:23 Pending Labs Complete 12/14/2021 15:02:54 12/14/2021 15:02:54 12/14/2021 15:30:56 Lab Complete 12/14/2021 15:02:54 12/14/2021 15:02:54 12/14/2021 15:30:56 Pending Labs Complete 12/14/2021 15:09:03 12/14/2021 15:09:03 12/14/2021 15:09:12 Lab Complete 12/14/2021 15:09:03 12/14/2021 15:09:03 12/14/2021 15:09:12 Pending Labs Complete 12/14/2021 15:19:31 12/14/2021 15:19:31 12/14/2021 15:19:32 Meds Admin Complete 12/14/2021 15:37:03 12/14/2021 15:45:40 Discharge Complete 12/14/2021 16:50:05 12/14/2021 17:08:34 12/14/2021 17:08:34 Transfer Complete 12/14/2021 17:08:34 12/14/2021 17:08:34 12/14/2021 17:08:34 ADDRESS: [address] [place] [address] [id number] PHYS DOC NOTES: MEDICAL INFORMATION: Prescriptions Given: New Medications Printed Prescriptions famotidine (Pepcid 40 mg Tab) 1 Tablets By Mouth once a day (at bedtime) for 5 Days. Refills: 0. ondansetron (Zofran ODT 4 mg Tab-Dis) 1 Tablets By Mouth 3 times a day. Refills: 0. PATIENT EDUCATION INFORMATION: Instructions: Viral Gastroenteritis, Adult Follow up: With: Address: When: Milton Macario [address] [place] [address], [facility], [place] [address] Business (1) In 3 days 12/17/2021 DIAGNOSIS: Dehydration; Nausea and vomiting [facility] ED Patient Education Noteon 12-14-2021 ED Patient Education Note Gastroenterology Viral Gastroenteritis, Adult Viral gastroenteritis is also known as the stomach flu. This condition may affect your stomach, small intestine, and large intestine. It can cause sudden watery diarrhea, fever, and vomiting. This condition is caused by many different viruses. These viruses can be passed from person to person very easily (are contagious). Diarrhea and vomiting can make you feel weak and cause you to become dehydrated. You may not be able to keep fluids down. Dehydration can make you tired and thirsty, cause you to have a dry mouth, and decrease how often you urinate. It is important to replace the fluids that you lose from diarrhea and vomiting. What are the causes? Gastroenteritis is caused by many viruses, including rotavirus and norovirus. Norovirus is the most common cause in adults. You can get sick after being exposed to the viruses from other people. You can also get sick by: ? Eating food, drinking water, or touching a surface contaminated with one of these viruses. ? Sharing utensils or other personal items with an infected person. What increases the risk? You are more likely to develop this condition if you: ? Have a weak body defense system (immune system). ? Live with one or more children who are younger than 2 years old. ? Live in a penitentiary. ? Travel on cruise ships. What are the signs or symptoms? Symptoms of this condition start suddenly 1?3 days after exposure to a virus. Symptoms may last for a few days or for as long as a week. Common symptoms include watery diarrhea and vomiting. Other symptoms include: ? Fever. ? Headache. ? Fatigue. ? Pain in the abdomen. ? Chills. ? Weakness. ? Nausea. ? Muscle aches. ? Loss of appetite. How is this diagnosed? This condition is diagnosed with a medical history and physical exam. You may also have a stool test to check for viruses or other infections. How is this treated? This condition typically goes away on its own. The focus of treatment is to prevent dehydration and restore lost fluids (rehydration). This condition may be treated with: ? An oral rehydration solution (ORS) to replace important salts and minerals (electrolytes) in your body. Take this if told by your health care provider. This is a drink that is sold at pharmacies and retail stores. ? Medicines to help with your symptoms. ? Probiotic supplements to reduce symptoms of diarrhea. ? Fluids given through an IV, if dehydration is severe. Older adults and people with other diseases or a weak immune system are at higher risk for dehydration. Follow these instructions at home: Eating and drinking ? Take an ORS as told by your health care provider. ? Drink clear fluids in small amounts as you are able. Clear fluids include: ? Water. ? Ice chips. ? Diluted fruit juice. ? Low-calorie sports drinks. ? Drink enough fluid to keep your urine pale yellow. ? Eat small amounts of healthy foods every 3?4 hours as you are able. This may include whole grains, fruits, vegetables, lean meats, and yogurt. ? Avoid fluids that contain a lot of sugar or caffeine, such as energy drinks, sports drinks, and soda. ? Avoid spicy or fatty foods. ? Avoid alcohol. General instructions ? Wash your hands often, especially after having diarrhea or vomiting. If soap and water are not available, use hand oven equipment repairer. ? Make sure that all people in your household wash their hands well and often. ? Take vsdr-upf-sfzhopk and prescription medicines only as told by your health care provider. ? Rest at home while you recover. ? Watch your condition for any changes. ? Take a warm bath to relieve any burning or pain from frequent diarrhea episodes. ? Keep all follow-up visits as told by your health care provider. This is important. Contact a health care provider if you: ? Cannot keep fluids down. ? Have symptoms that get worse. ? Have new symptoms. ? Feel light-headed or dizzy. ? Have muscle cramps. Get help right away if you: ? Have chest pain. ? Feel extremely weak or you faint. ? See blood in your vomit. ? Have vomit that looks like coffee grounds. ? Have bloody or black stools or stools that look like tar. ? Have a severe headache, a stiff neck, or both. ? Have a rash. ? Have severe pain, cramping, or bloating in your abdomen. ? Have trouble breathing or you are breathing very quickly. ? Have a fast heartbeat. ? Have skin that feels cold and clammy. ? Feel confused. ? Have pain when you urinate. ? Have signs of dehydration, such as: ? Dark urine, very little urine, or no urine. ? Cracked lips. ? Dry mouth. ? Sunken eyes. ? Sleepiness. ? Weakness. Summary ? Viral gastroenteritis is also known as the stomach flu. It can cause sudden watery diarrhea, fever, and vomiting. ? This condition can be passed from person to person (more content not included)... Normal [facility] ED Patient Summaryon 022 ED Patient Summary (Inserted Image. Eduarda ble to display) [facility] [address], [place] [address] Patient Discharge Instructions Person Information Name: BERNA BAUTISTA Age: 21 Years Arrival Date: 12/14/2021 14:28:36 Discharge Diagnosis: Dehydration; Nausea and vomiting Primary Care Physician: Milton Macario III, DO Provider Information Primary Provider: Clive Carranza DO Advanced Operating Theatre Technician:Jose Elias Aguilar PA-C The exam and treatment you received in the Emergency Department were for an urgent problem and are not intended as complete care. It is important that you follow up with a doctor, nurse practitioner, or physician?s office manager executive assistant for ongoing care. If your symptoms become worse or you do not improve as expected and you are unable to reach your usual health care provider, you should return to the Emergency Department. We are available 24 hours a day. BERNA BAUTISTA has been given the following list of patient education materials, prescriptions and follow-up instructions: Follow-up Instructions: With: Address: When: Milton Zimmermaners [address] [place] [address], [facility], [place], [place] [id number] Business (1) In 3 days 12/17/2021 In the event that this physician does not participate in your insurance network, please consult with your insurance company to find a nearby participating provider. Patient Education Materials: Viral Gastroenteritis, Adult A MESSAGE TO ALL PATIENTS REGARDING OPIOIDS PRESCRIPTION OPIOIDS: WHAT YOU NEED TO KNOW Prescription opioids can be used to help relieve qdwdwphu-to-odakrn pain and are often prescribed following a surgery or injury, or for certain health conditions. These medications can be an important part of the treatment but also come with serious risks. It is important to work with your healthcare provider to make sure you are getting the safest, most effective care. WHAT ARE THE RISKS AND SIDE EFFECTS OF OPIOID USE? Prescription opioids carry serious risks of addiction and overdose, especially with prolonged use. An opioid overdose, often marked by slowed breathing, can cause sudden . The use of prescription opioids can have a number of side effects as well, even when taken as directed: ? Tolerance?meaning you might need to take more of the medication for the same pain relief ? Physical dependence?meaning you have symptoms of withdrawal when a medication is stopped ? Increased sensitivity to pain ? Constipation ? Nausea, vomiting, and dry mouth ? Sleepiness and dizziness ? Confusion ? Depression ? Low levels of testosterone that can result in lower sex drive, energy, and strength ? Itching and sweating RISKS ARE GREATER WITH: ? History of drug misuse, substance use disorder, or overdose ? Mental health conditions (such as depression or anxiety) ? Sleep apnea ? Older age (65 years and older) ? Avoid alcohol while taking prescription opioids. Also, unless specifically advised by your health care provider, medications to avoid include: ? Benzodiazepines (such as Xanax or Valium) ? Muscle relaxants (such as Soma or Flexeril) ? Hypnotics (such as Ambien or Lunesta) ? Other prescription opioids KNOW YOUR OPTIONS Talk to your health care provider about ways to manage your pain that don?t involve prescription opioids. Some of these options may actually work better and have fewer risks and side effects. Options may include: ? Pain relievers such as acetaminophen, ibuprofen, and naproxen ? Some medication that are also used for depression or seizures ? Physical therapy and exercise ? Cognitive behavioral therapy, a psychological, goal-directed approach, in which patients learn how to modify physical, behavioral, and emotional triggers of pain and stress. IF YOU ARE PRESCRIBED OPIOIDS FOR PAIN: ? Never take opioids in greater amounts or more often than prescribed. ? Follow up with your primary health care provider. o Work together to create a plan on how to manage your pain. o Talk about ways to help manage your pain that don?t involve prescription opioids. o Talk about any and all concerns and side effects. ? Help prevent misuse and abuse o Never sell or share prescription opioids. o Never use another person?s prescription opioids. ? Store prescription opioids in a secure place and out of reach of others (this may include visitors, children, friends, and family). ? Safely dispose of unused prescription opioids: Find your community drug take-back program or your pharmacy mail-back program, or flush them down the toilet, following guidance from the Food and Drug Administration (www.fda.gov/Drugs/Resour cesForYou). ? Visit www.cdc.gov/drugoverdose to learn about the risks of opioids abuse and overdose. ? If you believe you may be struggling with addiction, tell your health critical care paramedic and ask for guidance or call [facility]?S National Helpline at 1 (more content not included)... Normal [facility] HEMATOLOGYOrdered By: SYSTEM SYSTEM on 12-14-2021 Basophils/100 WBC (Bld) 0.2 % Normal 0.0 - 2.0 % [facility] HemeAutoSS Basophils/Leukocytes Auto (Bld) [Pure # fraction] 0.0 E9/L Normal 0.0 - 0.2 E9/L [facility] HemeAutoSS Eosinophils/100 WBC (Bld) 1.0 % Normal 0.0 - 8.0 % [facility] HemeAutoSS Eosinophils/Leukocytes Auto (Bld) [Pure # fraction] 0.1 E9/L Normal 0.0 - 0.5 E9/L [facility]eAuto[facility] Lymphocytes/100 WBC (Bld) 14.1 % Normal 14.0 - 50.0 % [facility] HemeAutoSS Lymphocytes/Leukocytes Auto (Bld) [Pure # fraction] 1.5 E9/L Normal 1.0 - 4.0 E9/L [facility] HemeAutoSS Monocytes/100 WBC (Bld) 5.1 % Normal 4.0 - 14.0 % [facility] HemeAutoSS Monocytes/Leukocytes Auto (Bld) [Pure # fraction] 0.5 E9/L Normal 0.2 - 1.0 E9/L [facility]eAutoSS Neutrophils/100 WBC (Bld) 79.6 % High 36.0 - 75.0 % [facility] HemeAutoSS Neutrophils/Leukocytes Auto (Bld) [Pure # fraction] 8.5 E9/L High 2.0 - 7.5 E9/L [facility]eAutoSS HEMATOLOGYOrdered By: Kenna orellana on 12-14-2021 Erythrocyte distribution width (RBC) [Ratio] 15.2 % High 10.9 - 14.2 % [facility] HemeAutoSS Hematocrit (Bld) [Volume fraction] 38.6 % Normal 34.0 - 46.0 % [facility]eAuto[facility] Hemoglobin (Bld) [Mass/Vol] 13.4 g/dL Normal 12.0 - 16.0 gm/dL [facility]eAuto[facility] MCH (RBC) [Entitic mass] 27.6 pg Normal 27.0 - 34.0 pg [facility] HemeAutoSS MCHC (RBC) [Mass/Vol] 34.7 g/dL Normal 31.4 - 36.0 gm/dL [facility] HemeAutoSS MCV (RBC) [Entitic vol] 79.6 fL Low 80.0 - 100.0 fL [facility]Auto[facility] Platelet mean volume (Bld) [Entitic vol] 9.1 fL Normal 6.4 - 10.8 fL [facility]eAuto[facility] Platelets (Bld) [#/Vol] 229.0 E9/L Normal 150. 0 - 500.0 E9/L [facility] RBC (Bld) [#/Vol] 4.8 E12/L Normal 4.3 - 5.9 E12/L [facility] HemeAutoSS WBC corrected for nucl RBC Auto (Bld) [#/Vol] 10.6 E9/L Normal 4.0 - 11.0 E9/L [facility] HemeAutoSS Hep Func Panelon 12-14-2021 Bilirubin.indirect [Mass or moles/Vol] UTC Abnormal 0.1-0.9 [facility] Comment on above: Result Comment: Resu lt verified by Discern Rule. Performed result UTC (Unable to Calculate) was sent as an Alpha code due the inability to calculate a valid numeric value. Performed By: #### 2 [id number], [id number], [id number], 0737011, 1295349, 3887429 #### [facility] [address] [place] [address] Albumin [Mass/Vol] 4.7 g/dL Normal 3.3-5.0 [facility] Comment on above: Performed By: #### 2 128292, 9533355, 02071501, 4815803, 2492885, 6606251 #### [facility] [address] [place] [address] Albumin/Globulin (S) [Mass conc ratio] 1.3 Normal 1.1-2.2 [facility] Comment on above: Performed By: #### 2 166229, 7915931, 07406952, 1432426, 8968805, 8407950 #### [facility] [address] [place] [address] ALP [Catalytic activity/Vol] 102 Int._Unit/L High 21-98 [facility] Comment on above: Performed By: #### 2 763092, 1175106, 95047130, 4757023, 6368539, 6621907 #### [facility] [address] [place] [address] ALT No additional P-5'-P [Catalytic activity/Vol] 18 Int._Unit/L Normal 6-46 [facility] Comment on above: Performed By: #### 2 194318, 0442682, 91799363, 8317562, 2217579, 3862911 #### [facility] [address] [place] [address] AST [Catalytic activity/Vol] 20 Int._Unit/L Normal 5-43 [facility] Comment on above: Performed By: #### 2 793353, 2024997, 74959718, 0430094, 4044336, 9843441 #### [facility] [address] [place] [address] Bilirubin [Mass/Vol] 1.1 mg/dL Normal 0.0-1.1 [facility] Comment on above: Performed By: #### 2 382271, 6964300, 33479260, 3709862, 6379524, 5588082 #### [facility] [address] [place] [address] Bilirubin.direct [Mass/Vol] mg/dL Normal 0.1-0.4 [facility] Comment on above: Performed By: #### 2 721652, 9330093, 69640866, 4151440, 4100543, 6957632 #### [facility] [address] [place] [address] Globulin (S) [Mass/Vol] 3.5 g/dL Normal 1.4-4.0 [facility] Comment on above: Performed By: #### 2 102377, 1228834, 83541506, 0321463, 5076238, 2776373 #### [facility] [address] [place] [address] Protein [Mass/Vol] 8.2 g/dL High 6.0-7.8 [facility] Comment on above: Performed By: #### 2 826293, 8495084, 25733024, 9922756, 1314314, 2481945 #### [facility] [address] [place] [address] Lipase Levelon 12-14-2021 Lipase [Catalytic activity/Vol] 24 U/L Normal 13-58 [facility] Comment on above: Performed By: #### 2 789465, 1901366, 94304157, 7477202, 2663929, 5201493 #### [facility] [address] [place] [address] UA With Cult Reflexon 2021 Bacteria LM Ql (Urine sed) TRACE Normal Trace [facility] Comment on above: Performed By: #### 1 [id number] #### [facility] [address] [place] [address] Bilirubin Ql (U) 1+ Abnormal Negative [facility] Comment on above: Performed By: #### 1 [id number] #### [facility] [address] [place] [address] Clarity (U) CLEAR Normal Clear [facility] Comment on above: Performed By: #### 1 6631482 #### [facility] [address] [place] [address] Color (U) YELLOW Normal Yellow [facility] Comment on above: Performed By: #### 1 7583885 #### [facility] [address] [place] [address] Epithelial cells.squamous LM.HPF (Urine sed) [#/Area] 0-2 Normal 0-2 [facility] Comment on above: Performed By: #### 1 6005297 #### [facility] [address] [place] [address] Glucose Test strip (U) [Mass/Vol] Negative Normal Negative [facility] Comment on above: Performed By: #### 1 [id number] #### [facility] [address] [place] [address] Hemoglobin Ql (U) Negative Normal Negative [facility] Comment on above: Performed By: #### 1 [id number] #### [facility] [address] [place] [address] Ketones (U) [Mass/Vol] 3+ Abnormal Negative [facility] Comment on above: Performed By: #### 1 8908084 #### [facility] [address] [place] [address] [place].plasma/[place]. RBC (Bld) [Mass ratio] 0-3 Normal 0-3 [facility] Comment on above: Performed By: #### 1 0101672 #### [facility] [address] [place] [address] Mucus Ql (Urine sed) 3+ Normal Fish [facility] Comment on above: Performed By: #### 1 2614432 #### [facility] [address] [place] [address] Nitrite Ql (U) Negative Normal Negative [facility] Comment on above: Performed By: #### 1 [id number] #### [facility] [address] [place] [address] pH (U) 6.5 [pH] Invalid Interpretation Code 5.0-9.0 [facility] Comment on above: Performed By: #### 1 [id number] #### [facility] [address] [place] [address] Protein (U) [Mass/Vol] TRACE Abnormal Negative [facility] Comment on above: Performed By: #### 1 8328597 #### [facility] [address] [place] [address] Specific gravity (U) [Rel density] 1.025 Invalid Interpretation Code 1.005-1.03 0 [facility] Comment on above: Performed By: #### 1 3375399 #### [facility] [address] [place] [address] Type of Urine collection method Clean Catch Normal [facility] Comment on above: Performed By: #### 1 [id number] #### [facility] [address] [place] [address] Urobilinogen Qn (U) 0.2 {Bhaskar'U}/dL Normal 0.0-1.0 [facility] Comment on above: Performed By: #### 1 9567440 #### [facility] [address] [place] [address] WBC Auto Ql (U) Negative Normal Negative [facility] Comment on above: Performed By: #### 1 8310835 #### [facility] [address] [place] [address] WBC LM.HPF (Urine sed) [#/Area] 0-5 Normal 0-5 [facility] Comment on above: Performed By: #### 1 7144890 #### [facility] [address] [place] [address] URINALYSISOrdered By: Julio Tineo on 12-14-2021 Bacteria LM Ql (Urine sed) Trace /HPF Normal Trace/HPF [facility] UA Auto SS Bilirubin Ql (U) 1+ *ABN* (12/14/21 4:15 PM) Invalid Interpretation Code Negative [facility] UA Auto SS Clarity (U) Clear (12/14/21 4:15 PM) Normal Clear [facility] UA Auto SS Color (U) Yellow (12/14/21 4:15 PM) Normal Yellow [facility] UA Auto SS Epithelial cells.squamous LM.HPF (Urine sed) [#/Area] 0-2 /HPF Normal 0-2/HPF [facility] UA Auto SS Glucose Test strip (U) [Mass/Vol] Negative (12/14/21 4:15 PM) Normal Negative [facility] UA Auto SS Hemoglobin Ql (U) Negative (12/14/21 4:15 PM) Normal Negative [facility] UA Auto SS Ketones (U) [Mass/Vol] 3+ *ABN* (12/14/21 4:15 PM) Invalid Interpretation Code Negative [facility] UA Auto SS [place].plasma/[place]. RBC (Bld) [Mass ratio] 0-3 /HPF Normal 0-3/HPF [facility] UA Auto SS Mucus Ql (Urine sed) 3+ (12/14/21 4:15 PM) Normal [facility] UA Auto SS Nitrite Ql (U) Negative (12/14/21 4:15 PM) Normal Negative [facility] UA Auto SS pH (U) 6.5 *NA* (12/14/21 4:15 PM) Invalid Interpretation Code 5.0 - 9.0 [facility] UA Auto SS Protein (U) [Mass/Vol] Trace *ABN* (12/14/21 4:15 PM) Invalid Interpretation Code Negative [facility] UA Auto SS Specific gravity (U) [Rel density] 1.025 *NA* (12/14/21 4:15 PM) Invalid Interpretation Code 1.005 - 1.030 [facility] UA Auto SS UA Spec Desc Clean Catch (12/14/21 4:15 PM) Normal [facility] UA Auto SS Urobilinogen Qn (U) 0.0155697 {Bhaskar'U}/dL Normal 0.0 - 1.0 EU/dL [facility] UA Auto SS WBC Auto Ql (U) Negative (12/14/21 4:15 PM) Normal Negative [facility] UA Auto SS WBC LM.HPF (Urine sed) [#/Area] 0-5 /HPF Normal 0-5/HPF [facility] UA Auto SS eGFRon 12-14-2021 GFR/1.73 sq M.predicted among blacks MDRD (S/P/Bld) [Vol rate/Area] mL/min/{1.73_m2} Normal >=59 [facility] Comment on above: Order Comment: Order added by Discern Expert. Result Comment: eGFR is race adjusted. AA=. Performed By: #### 2 957140, 5039930, 44096551, 2659471, 5188045, 0388037 #### [facility] [address] [place] [address] GFR/1.73 sq M.predicted among non-blacks MDRD (S/P/Bld) [Vol rate/Area] mL/min/{1.73_m2} Normal >=59 [facility] Comment on above: Order Comment: Order added by Discern Expert. Result Comment: Cross Cut Saw Operator kofi kidney disease could be indicated at eGFR's of less than 60 mL/min/1.73m2. Kidney failure is indicated at less than 15 mL/min/1.73m2. Performed By: #### 2 161085, 2490828, 54376569, 5644497, 0612101, 6838142 #### [facility] [address] [place] [address] CT CERV SPINE W/O CONTRASTon 08-24-2018 CT CERV SPINE W/O CONTRAST DATE OF EXAM: Aug 24 2018 1:48PMCLINICAL HISTORY/ Name: WALE BAUTISTA:CT CERV SPINE W/O CONTRAST; 08/24/2018 1:48 pmINDICATION:Trauma.FABIAN RISON:None. [facility]:ARISTIDES LALA:Multiple axial images are obtained through the cervical spine without contrast. Sagittal and coronal images are reformatted.FINDINGS:VERT EBRAL BODIES, POSTERIOR ELEMENTS AND SPINAL CANAL: There is no acute fracture or traumatic malalignment. Posterior elements are intact. The craniocervical junction facet joints are intact. There is no central canal stenosis. Mild straightening of normal cervical lordosis is most likely positional.NECK SOFT TISSUES: No prevertebral soft tissue thickening.LUNG APICES: No focal mass.CONCLUSION: IMPRESSION:No acute fracture or traumatic malalignment of the cervical spine. Normal [facility] CT HEAD/BRAIN W/O CONTRASTon 08-24-2018 CT HEAD/BRAIN W/O CONTRAST DATE OF EXAM: Aug 24 2018 1:48PMCLINICAL HISTORY/ Name: WALE BAUTISTA:CT HEAD/BRAIN W/O CONTRAST; 08/24/2018 1:48 pmINDICATION:Trauma.FABIAN RISON:None. [facility]:ARISTIDES LALA:Multiple axial images are obtained through the head without contrast. Coronal and sagittal images are reformatted.FINDINGS:BRAI N PARENCHYMA: Intact knox-white differentiation. No mass effect or acute hemorrhage. No finding to suggest acute cortical infarct.VENTRICLES: No hydrocephalus.EXTRA-AXIAL SPACES: No focal mass or fluid collection.EXTRACRANIAL SOFT TISSUES: No focal mass or thickening.PARANASAL SINUSES/MASTOIDS: No abnormal opacification.CALVARIUM: No displaced fracture.CONCLUSION: IMPRESSION:No acute intracranial abnormality. Normal [facility] Vital Signs Date Time Vital Sign Value Performing Clinician Everardo kingston 03-17-2024 11:15-0400 Body height 152.4 cm [facility] Work Phone: [facility] 03-17-2024 11:15-0400 Body temperature 98.3 [degF] [facility] Work Phone: [facility] 03-17-2024 11:15-0400 Body weight 45.8 kg [facility] Work Phone: [facility] 03-17-2024 11:15-0400 Diastolic blood pressure 63 mm[Hg] [facility] Work Phone: [facility] 03-17-2024 11:15-0400 Heart rate 79 /min [facility] Work Phone: [facility] 03-17-2024 11:15-0400 Respiratory rate 18 /min [facility] Work Phone: [facility] 03-17-2024 11:15-0400 SaO2% (BldA) [Mass fraction] 100 % [facility] Work Phone: [facility] 03-17-2024 11:15-0400 Systolic blood pressure 127 mm[Hg] [facility] Work Phone: [facility] 03-18-2023 16:33-0400 Diastolic blood pressure 62 mm[Hg] [facility] Work Phone: [facility] 03-18-2023 16:33-0400 Heart rate 63 /min [facility] Work Phone: [facility] 03-18-2023 16:33-0400 Respiratory rate 18 /min [facility] Work Phone: [facility] 03-18-2023 16:33-0400 SaO2% (BldA) [Mass fraction] 100 % [facility] Work Phone: [facility] 03-18-2023 16:33-0400 Systolic blood pressure 118 mm[Hg] [facility] Work Phone: [facility] 03-18-2023 14:39-0400 Body temperature 97.6 [degF] [facility] Work Phone: [facility] 03-18-2023 14:37-0400 Body height 154.94 cm [facility] Work Phone: [facility] 03-18-2023 14:37-0400 Body weight 44 kg [facility] Work Phone: [facility] 11-21-2022 23:03-0400 Body height 162.56 cm [facility] Work Phone: [facility] 11-21-2022 23:03-0400 Body temperature 99.2 [degF] [facility] Work Phone: [facility] 11-21-2022 23:03-0400 Body weight 46.8 kg [facility] Work Phone: [facility] 11-21-2022 23:03-0400 Diastolic blood pressure 62 mm[Hg] [facility] Work Phone: [facility] 11-21-2022 23:03-0400 Heart rate 87 /min [facility] Work Phone: [facility] 11-21-2022 23:03-0400 Respiratory rate 16 /min [facility] Work Phone: [facility] 11-21-2022 23:03-0400 SaO2% (BldA) [Mass fraction] 96 % [facility] Work Phone: [facility] 11-21-2022 23:03-0400 Systolic blood pressure 130 mm[Hg] [facility] Work Phone: [facility] 06-30-2022 22:51-0400 Body height 152.4 cm [facility] Work Phone: [facility] 06-30-2022 22:51-0400 Body weight 48.85 kg [facility] Work Phone: [facility] 06-30-2022 22:50-0400 Body temperature 98 [degF] [facility] Work Phone: [facility] 06-30-2022 22:50-0400 Diastolic blood pressure 61 mm[Hg] [facility] Work Phone: [facility] 06-30-2022 22:50-0400 Heart rate 70 /min [facility] Work Phone: [facility] 06-30-2022 22:50-0400 Respiratory rate 17 /min [facility] Work Phone: [facility] 06-30-2022 22:50-0400 SaO2% (BldA) [Mass fraction] 100 % [facility] Work Phone: [facility] 06-30-2022 22:50-0400 Systolic blood pressure 114 mm[Hg] [facility] Work Phone: [facility] 04-29-2022 04:00-0400 Diastolic blood pressure 59 mm[Hg] [facility] Work Phone: [facility] 04-29-2022 04:00-0400 Heart rate 59 /min [facility] Work Phone: [facility] 04-29-2022 04:00-0400 Respiratory rate 16 /min [facility] Work Phone: [facility] 04-29-2022 04:00-0400 SaO2% (BldA) [Mass fraction] 98 % [facility] Work Phone: [facility] 04-29-2022 04:00-0400 Systolic blood pressure 108 mm[Hg] [facility] [facility] 04[facility]22 00:46-0400 Body temperature 99 [degF] [facility] Work Phone: [facility] 04-28-2022 16:33-0400 Body height 152.4 cm [facility] Work Phone: [facility] 04-28-2022 16:33-0400 Body temperature 98.4 [degF] [facility] Work Phone: [facility] 04-28-2022 16:33-0400 Body weight 51 kg [facility] Work Phone: [facility] 04-28-2022 16:33-0400 Diastolic blood pressure 68 mm[Hg] [facility] Work Phone: [facility] 04-28-2022 16:33-0400 Heart rate 110 /min [facility] Work Phone: [facility] 04-28-2022 16:33-0400 Respiratory rate 20 /min [facility] Work Phone: [facility] 04-28-2022 16:33-0400 SaO2% (BldA) [Mass fraction] 100 % [facility] Work Phone: [facility] 04-28-2022 16:33-0400 Systolic blood pressure 120 mm[Hg] [facility] Work Phone: [facility] 02-22-2022 20:58-0400 Body height 152.4 cm [facility] Work Phone: [facility] 02-22-2022 20:58-0400 Body mass index (BMI) [Ratio] 23.4 kg/m2 [facility] Work Phone: [facility] 02-22-2022 20:58-0400 Body temperature 98.5 [degF] [facility] Work Phone: [facility] 02-22-2022 20:58-0400 Body weight 54.43 kg [facility] Work Phone: [facility] 02-22-2022 20:58-0400 Diastolic blood pressure 69 mm[Hg] [facility] Work Phone: [facility] 02-22-2022 20:58-0400 Heart rate 100 /min [facility] Work Phone: [facility] 02-22-2022 20:58-0400 Respiratory rate 18 /min [facility] Work Phone: [facility] 02-22-2022 20:58-0400 SaO2% (BldA) [Mass fraction] 98 % [facility] Work Phone: [facility] 02-22-2022 20:58-0400 Systolic blood pressure 130 mm[Hg] [facility] Work Phone: [facility] 02-21-2022 12:20-0400 Body temperature 99.7 [degF] [facility] Work Phone: [facility] 02-21-2022 12:20-0400 Heart rate 104 /min [facility] Work Phone: [facility] 02-21-2022 10:53-0400 Body height 152.4 cm [facility] Work Phone: [facility] 02-21-2022 10:53-0400 Body mass index (BMI) [Ratio] 23.4 kg/m2 [facility] Work Phone: [facility] 02-21-2022 10:53-0400 Body weight 54.5 kg [facility] Work Phone: [facility] 02-21-2022 10:53-0400 Diastolic blood pressure 80 mm[Hg] [facility] Work Phone: [facility] 02-21-2022 10:53-0400 Respiratory rate 20 /min [facility] Work Phone: [facility] 02-21-2022 10:53-0400 SaO2% (BldA) [Mass fraction] 98 % [facility] Work Phone: [facility] 02-21-2022 10:53-0400 Systolic blood pressure 129 mm[Hg] [facility] Work Phone: [facility] 12-14-2021 16:00-0400 Diastolic blood pressure 69 mm[Hg] Clive Dillon [facility] 12-14-2021 16:00-0400 Heart rate 72 /min Clive Dillon [facility] 12-14-2021 16:00-0400 Mean blood pressure 82 mm[Hg] Clive Dillon [facility] 12-14-2021 16:00-0400 Systolic blood pressure 107 mm[Hg] Clive Dillon [facility] 12-14-2021 15:30-0400 Diastolic blood pressure 81 mm[Hg] Clive Dillon [facility] 12-14-2021 15:30-0400 Heart rate 68 /min Clive Dillon [facility] 12-14-2021 15:30-0400 Mean blood pressure 85 mm[Hg] Clive Dillon [facility] 12-14-2021 15:30-0400 Systolic blood pressure 92 mm[Hg] Clive Dillon [facility] 12-14-2021 15:00-0400 Diastolic blood pressure 73 mm[Hg] Clive Dillon [facility] 12-14-2021 15:00-0400 Systolic blood pressure 110 mm[Hg] Clive Dillon [facility] 12-14-2021 14:35-0400 Body temperature 97.7 [degF] Clive Dillon [facility] 12-14-2021 14:35-0400 Heart rate 65 /min Clive Dillon [facility] 12-14-2021 14:35-0400 Respiratory rate 18 /min Clive Dillon [facility] 12-14-2021 14:35-3910 SaO2% (BldA) [Mass fraction] 100 % Clive Carranza [facility] Encounters Encounter Date Encounter Type Care Provider Facility Start: 05-13-2024 End: 05-13-2024 ambulatory DESTINI Pederson RINMARISELA Not Available Start: 04-10-2024 End: 04-10-2024 ambulatory DESTINI E RINKES Not Available Start: 04-03-2024 End: 04-03-2024 ambulatory DESTINI E RINKES Not Available Start: 03-17-2024 End: 03-17-2024 Emergency department patient visit [facility] Work Phone: [facility] Work Phone: Start: 01-24-2024 End: 01-24-2024 Patient encounter procedure [facility] Work Phone: [facility] [place] Work Phone: Start: 01-24-2024 End: 01-24-2024 ambulatory [facility] Work Phone: [facility] Work Phone: Start: 01-22-2024 End: 01-22-2024 Patient encounter procedure [facility] Work Phone: [facility] [place] Work Phone: Start: 01-22-2024 End: 01-22-2024 ambulatory Services Family [facility] Facility:[facility] Start: 11-22-2023 End: 11-22-2023 ambulatory LARA Dyana NAZARIO Not Available Start: 05-11-2023 End: 05-11-2023 ambulatory [facility] Work Phone: [facility] Work Phone: Start: 05-11-2023 End: 05-11-2023 Departed Referred [facility] Work Phone: [facility] Start: 03-18-2023 End: 03-18-2023 Emergency department patient visit [facility] Work Phone: [facility] Work Phone: Start: 03-09-2023 End: 03-09-2023 ambulatory TON Bourne Work Phone: [facility] Work Phone: Start: 03-09-2023 End: 03-09-2023 Departed Referred CATHODE RAY TUBE SALVAGE PROCESSORDyana Bourne Work Phone: [facility] Start: 01-30-2023 End: 01-30-2023 Departed Referred TON Bourne Work Phone: [facility] Services Start: 11-21-2022 End: 11-22-2022 Emergency department patient visit Services [facility] Work Phone: [facility] Work Phone: Start: 06-30-2022 End: 06-30-2022 Emergency department patient visit Services [facility] Work Phone: [facility] Start: 06-19-2022 End: 06-19-2022 ambulatory BABAK DENNY Facility: Start: 04-29-2022 End: 04-29-2022 Emergency department patient visit Services [facility] Work Phone: [facility] Start: 04-28-2022 End: 04-28-2022 Emergency department patient visit Services Family [facility] Work Phone: [facility] Start: 02-22-2022 End: 02-22-2022 Emergency department patient visit Services [facility] Work Phone: [facility] Start: 02-21-2022 End: 02-21-2022 Emergency department patient visit Services [facility] Work Phone: [facility] Start: 12-14-2021 End: 12-14-2021 Emergency department patient visit Clive Carranza [facility] Start: 08-24-2018 End: 08-24-2018 Emergency department patient visit NO FAMILY DOCTOR NO FAMILY DOCTOR Facility:[facility] Start: 08-24-2018 Patient encounter procedure Facility:[id number] Procedures Date Procedure Procedure Detail Performing Clinician Start: 03-17-2024 CT of head without contrast [facility] Work Phone: Start: 01-24-2024 US scan of thyroid Serv ices [facility] Work Phone: Start: 03-18-2023 Mycology culture Servic es [facility] Work Phone: Start: 03-18-2023 Trichomonas vaginali s detection Services [facility] Work Phone: Start: 03-18-2023 Urine culture Services [facility] Work Phone: Streptococcus pyogen es Ag [Presence] in Throat [facility] Work Phone: Streptococcus pyogen es Ag [Presence] in Throat Services [facility] Work Phone: Urine culture Services [facility] Work Phone: Plan of Treatment Date Care Activity Detail Author Start: 03-18-2023 [facility] Start: 03-18-2023 Bacteria identified in Urine by Culture [facility] Start: 11-21-2022 CT of head without contrast CT head/brain wo con [facility] Start: 11-21-2022 CT Unspecified body region WO contrast [facility] Bacteria identified in Urine by Culture [facility] HIV 1+2 Ab+HIV1 p24 Ag [Presence] in Serum or Plasma by Immunoassay [facility] Patient Education [facility] Work Phone: Patient referral [facility] Work Phone: Reagin Ab [Presence] in Serum by RPR [facility] Thyrotropin [Units/v olume] in Serum or Plasma [facility] Thyroxine (T4) free index in Serum or Plasma by calculation [facility] Thyroxine measurement [facility] Triiodothyronine (T3 ) [Mass/volume] in Serum or Plasma [facility] Triiodothyronine res in uptake (T3RU) in Serum or Plasma [facility] Immunizations Immunization Date Immunization Notes Care Provider Dalia vega 06-28-2021 tetanus toxoid, redu guille diphtheria toxoid, and acellular pertussis vaccine, adsorbed Services [employer] Work Phone: [facility] Payers Date Payer Category Payer Self-pay [id number] 2023 Unknown [id number] 2001 Unknown [id number] 2.16. [id number] 2001 Unknown [id number] 2.16.84 [id number] 2001 Unknown [id number] 2.16.84 [id number] 2001 Unknown [id number] 2.16.84 [id number] 2001 Unknown [id number] 2.16.84 [id number] 2001 Unknown [id number] 2.16.84 [id number] 2001 Unknown [id number] 2.16.84 [id number] 2001 Unknown [id number] 2.16.84 [id number] 1983 Unknown [id number] 2.16.8 [id number] 1959 Private Health Insurance [id number] 1959 Unknown [id number] Unknown Unknown [id number] 2.16.8 [id number] Unknown [id number] 2.16.8 [id number] Unknown [id number] 2.16.8 [id number] Unknown [id number] 2.16.8 [id number] Social History Date Type Detail Facility Tobacco smoking status [facility] Sex Assigned At Female [facility] Start: 04-29-2022 End: 03-17-2024 Tobacco smoking status [facility] Smoker (finding) [facility] Start: 2001 Sex Assigned At Female [facility] Hospital Discharge instructions 12-14-2021 Note Date & Type Note Facility 12-14-2021 Hospital Discharg e instructions Patient Education 12/14/2021 17:08:34 Viral Gastroenteritis, Adult Viral Gastroenteritis, Adult Viral gastroenteritis is also known as the stomach flu. This condition may affect your stomach, small intestine, and large intestine. It can cause sudden watery diarrhea, fever, and vomiting. This condition is caused by many different viruses. These viruses can be passed from person to person very easily (are contagious). Diarrhea and vomiting can make you feel weak and cause you to become dehydrated. You may not be able to keep fluids down. Dehydration can make you tired and thirsty, cause you to have a dry mouth, and decrease how often you urinate. It is important to replace the fluids that you lose from diarrhea and vomiting. What are the causes? Gastroenteritis is caused by many viruses, including rotavirus and norovirus. Norovirus is the most common cause in adults. You can get sick after being exposed to the viruses from other people. You can also get sick by: Eating food, drinking water, or touching a surface contaminated with one of these viruses. Sharing utensils or other personal items with an infected person. What increases the risk? You are more likely to develop this condition if you: Have a weak body defense system (immune system). Live with one or more children who are younger than 2 years old. Live in a penitentiary. Travel on cruise ships. What are the signs or symptoms? Symptoms of this condition start suddenly 1 3 days after exposure to a virus. Symptoms may last for a few days or for as long as a week. Common symptoms include watery diarrhea and vomiting. Other symptoms include: Fever. Headache. Fatigue. Pain in the abdomen. Chills. Weakness. Nausea. Muscle aches. Loss of appetite. How is this diagnosed? This condition is diagnosed with a medical history and physical exam. You may also have a stool test to check for viruses or other infections. How is this treated? This condition typically goes away on its own. The focus of treatment is to prevent dehydration and restore lost fluids (rehydration). This condition may be treated with: An oral rehydration solution (ORS) to replace important salts and minerals (electrolytes) in your body. Take this if told by your health care provider. This is a drink that is sold at pharmacies and retail stores. Medicines to help with your symptoms. Probiotic supplements to reduce symptoms of diarrhea. Fluids given through an IV, if dehydration is severe. Older adults and people with other diseases or a weak immune system are at higher risk for dehydration. Follow these instructions at home: Eating and drinking Take an ORS as told by your health care provider. Drink clear fluids in small amounts as you are able. Clear fluids include: ?Water. ?Ice chips. ?Diluted fruit juice. ?Low-calorie sports drinks. Drink enough fluid to keep your urine pale yellow. Eat small amounts of healthy foods every 3 4 hours as you are able. This may include whole grains, fruits, vegetables, lean meats, and yogurt. Avoid fluids that contain a lot of sugar or caffeine, such as energy drinks, sports drinks, and soda. Avoid spicy or fatty foods. Avoid alcohol. General instructions Wash your hands often, especially after having diarrhea or vomiting. If soap and water are not available, use hand oven equipment repairer. Make sure that all people in your household wash their hands well and often. Take wger-vgt-diyinco and prescription medicines only as told by your health care provider. Rest at home while you recover. Watch your condition for any changes. Take a warm bath to relieve any burning or pain from frequent diarrhea episodes. Keep all follow-up visits as told by your health care provider. This is important. Contact a health care provider if you: Cannot keep fluids down. Have symptoms that get worse. Have new symptoms. Feel light-headed or dizzy. Have muscle cramps. Get help right away if you: Have chest pain. Feel extremely weak or you faint. See blood in your vomit. Have vomit that looks like coffee grounds. Have bloody or black stools or stools that look like tar. Have a severe headache, a stiff neck, or both. Have a rash. Have severe pain, cramping, or bloating in your abdomen. Have trouble breathing or you are breathing very quickly. Have a fast heartbeat. Have skin that feels cold and clammy. Feel confused. Have pain when you urinate. Have signs of dehydration, such as: ?Dark urine, very little urine, or no urine. ?Cracked lips. ?Dry mouth. ?Sunken eyes. ?Sleepiness. ?Weakness. Summary Viral gastroenteritis is also known as the stomach flu. It can cause sudden watery diarrhea, fever, and vomiting. This condition can be passed from person to person very easily (is contagious). Take an ORS if told by your health care provider. This is a drink that is sold at pharmacies and retail stores. Wash your hands often, especially after having diarrhea or vomiting. If soap and water are not available, use hand oven equipment repairer. This information is not intended to replace advice given to you by your health care provider. Make sure you discuss any questions you have with your health care provider. Document Released: 08/27/2006 Document Revised: 02/13/2020 Document Reviewed: 07/02/2019 [employer] Patient Education 2020 [employer]. Follow Up Care 12/14/2021 14:30:23 With:Milton Macario Address: [address] [place] [id number] Business (1) When:12/17/2021 16:49:58 [facility] Evaluation + Plan note Note Date & Type Note Facility Evaluation + Plan note No data available for this section [facility] Evaluation note Note Date & Type Note Facility Evaluation note No assessment information availa ble [facility] Work Phone: Hospital Discharge instructions Note Date & Type Note Facility Hospital Discharge instructions [facility] Work Phone: Hospital Discharge instructions Note Date & Type Note Facility Hospital Discharge instructions Additional Instructions There is no sign of a dangerous problem causing the numbness in your neck. It certainly could be a superficial nerve injury if you were bitten on the neck. Sometimes people can have pinched nerves for other reasons as well. Please follow-up with your primary care doctor. [facility] Work Phone: Hospital Discharge instructions Note Date & Type Note Facility Hospital Discharge instructions Additional Instructions take doxycycline and flagyl as prescribed for pelvic inflammatory disease. follow up with your OBGYN physician for re-evaluation after you have completed the course of treatment [facility] Work Phone: Hospital Discharge instructions Note Date & Type Note Facility Hospital Discharge instructions Additional Instructions Rest Increase oral fluids continue [id number]-alo-qcbgnft medicine for headache such as Tylenol Excedrin Migraine ibuprofen Follow-up with family doctor Return to the ER for worsening pain persistent vomiting high fever or any other concerns [facility] Work Phone: Summary Purpose Family History No Family History Records Found Relationship Condition Age at Onset Recorded Date/T princess Not Specified No pertinent family history Unknown Advance Directives No Advanced Directives Records Found Advance Directive Response Recorded Date/ Time Advance Directives No May 4:26pm Chief Complaint and Reason for Visit Chief Complaint Right side face swol domenic Throat Pain TROUBLE BREATHING, SORE THROAT Covid+, SOB Chief Complaint TROUBLE BREATHING, S ORE THROAT Covid+, SOB Urogenital Chief Complaint facial numbness Chief Complaint Z20.[address] D Hypothyroidism, unspecified Hypothyroidism, unspecified type Chief Complaint Z20.[address] D Hypothyroidism, unspecified Hypothyroidism, unspecified type abd pain Chief Complaint Hypothyroidism, unsp ecified type abd pain Exposure to STD Hypothyroidism Chief Complaint E03.9 e03.9 Chief Complaint E03.9 e03.9 MONAE,n/v Additional Source Comments INFORMATION SOURCE (unrecogn ized section and content) DATE CREATED AUTHOR 08/28/2018 [facility] DATE CREATED AUTHOR AUTHOR'S ORGANIZ ATION 10/15/2018 [facility] DATE CREATED AUTHOR AUTHOR'S ORGANIZ ATION 05/13/2022 [facility] ical Center DATE CREATED AUTHOR AUTHOR'S ORGANIZ ATION 10/17/2022 [facility] DATE CREATED AUTHOR AUTHOR'S ORGANIZ ATION 04/04/2024 [facility] DATE CREATED AUTHOR AUTHOR'S ORGANIZ ATION 05/13/2024 [facility] dical Specialists EP[employer] Care Teams (unrecognized sec tion and content) Team Status: Inactive Member Role Status Dates Services [facility] Primary Care Provider Active Lui Bailon APRN Emergency Provider Active Team Status: Inactive Member Role Status Dates Services Family [facility] Primary Care Provider Active Regis Mosquera PA-C Emergency Provider Active Team Status: Inactive Member Role Status Dates Services [facility] Primary Care Provider Active Norm Crane Jr, MD Emergency Provider Active Team Status: Inactive Member Role Status Dates Services [facility] Primary Care Provider Active TITUS Rodney- Emergency Provider Active Team Status: Active Member Role Status Dates Services [facility] Primary Care Provider Active Team Status: Inactive Member Role Status Dates Services [facility] Primary Care Provider Active Luis E Cordero DO Emergency Provider Active Team Status: Inactive Member Role Status Dates Chloe Bourne APRN REVENUE TAX SPECIALIST-C Attending Provider Active Team Status: Inactive Member Role Status Dates Services [facility] Primary Care Provider Active Bronson Escobar DO Emergency Provider Active Team Status: Inactive Member Role Status Dates Services [facility] Primary Care Provider Active Start: January 22, 2024 End: January 22, 2024 Miguel Ramos MD Attending Provider Active Sta rt: January 22, 2024 End: January 22, 2024 Team Status: Inactive Member Role Status Dates Services [facility] Primary Care Provider Active Start: January 24, 2024 End: January 24, 2024 Miguel Ramos MD Attending Provider Active Sta rt: January 24, 2024 End: January 24, 2024 Team Status: Inactive Member Role Status Dates Services [facility] Primary Care Provider Active Start: March 17, 2024 End: March 17, 2024 TITUS Rodney-BC Emergency Provider Active Start: March 17, 2024 End: March 17, 2024 Goals (unrecognized section and content) Goals may be documented in a n alternate section FOR RECORDS PERTAINING TO PATIENTS WHO ARE OR HAVE BEEN ENROLLED IN A CHEMICAL DEPENDENCY/SUBSTANCEABUSE PROGRAM, SOME INFORMATION MAY BE OMITTED. This clinical summary was aggregated from multiple sources. Caution should be exercised in using it in the provision of clinical care. This summary normalizes information from multiple sources, and as a consequence, information in this document may materially change the coding, format and clinical context of patient data. In addition, data may be omitted in some cases. CLINICAL DECISIONS SHOULD BE BASED ON THE PRIMARY CLINICAL RECORDS. [employer] provides no warranty or guarantee of the accuracy or completeness of information in this document.
== END 2024-06-28 10:37 | disposition home or self-care (01) ==
LOC: ER 10:35
PROVIDERS: Emergency Provider Emergency Medicine
DX: D24.2 Benign neoplasm of left breast (principal)
CPT/HCPCS: 99281

== ENCOUNTER 2025-01-10 19:28 | Emergency (ER) | payer BC, OTHER, SELFPAY ==
[2025-01-10 19:48] VITALS: BP 110/71; PULSE 71; TEMP 36.8; O2SAT 100; BMI 21.5
[2025-01-10] MEDS: ONDANSETRON 4 MG RAPDIS TABLET SL (21:14)
[2025-01-10 21:23] LABS: Internal Control Within Normal Limits; Strep A Antigen Screen Negative
[2025-01-10 21:32] LABS: Influenza Virus A Antigen Negative; Influenza Virus B Antigen Negative; Internal Control Within Normal Limits; SARS-CoV-2 Ag NEGATIVE (NEGATIVE)
--- NOTE | 2025-01-10 22:07 | ED_ITS ---
[facility] HPI - General Adult General Chief complaint: Abdominal Pain Stated complaint: 16 weeks , abdominal pain Time Seen by Provider: 01/10/25 20:31 Source: patient Mode of arrival: walk-in Limitations: no limitations History of Present Illness HPI narrative: Patient is a 24-year-old female who is 16 weeks presenting to the emergency room for abdominal pain. Patient is having mid abdominal pain. Its associated with nausea and vomiting and diarrhea. Symptoms have been going on for 3 days. They are gradually getting worse. Patient is and is concerned about the viability of her . Patient states she is not having any vaginal pain or discharge. No low back or crampy-like sensation. Patient has been getting good care. Patient states that she feels generalized malaise but no radhika fever or chills. No known sick contacts or recent travel. Symptoms are moderate in severity. Unknown what makes them worse. Nothing makes them better. Related Data Home Medications ?Medication ?Instructions ?Recorded ?Confirmed 01/10/25 albuterol sulfate 90 mcg/actuation 2 puff inhalation Q 4H PRN 01/10/25 01/10/25 aerosol inhaler shortness of breath or wheez ing Previous Rx's ?Medication ?Instructions ?Recorded ondansetron 4 mg disintegrating 4 mg PO Q6H PRN nausea and 01/10/25 tablet vomiting #14 tabs Allergies Allergy/AdvReac Type Severity Reaction Status Date / Time oxytocin (From Pitocin) Allergy Mild Unknown Verified 01/10/25 19:53 Review of Systems ROS Narrative 10 Systems were reviewed, and unless not ed in the HPI, all other systems are reviewed, unremarkable, or noncontributory. PFSH PFS Social History Little interest or pleasure in doing things: not at all Feeling down, depressed, or hopeless: not at all Exam Narrative Exam Narrative: Prior to examining the patient, I have washed with hospital approved and provided Antiseptic Hand Visor Installer and have also applied gloves.? Prior to touching the patient, I asked for consent to examine the patient.? General: Alert and oriented, well nourished, mild distress. Eye: PERRL, EOMI, normal conjunctiva. HENT: Normocephalic, normal hearing, moist oral mucosa, no scleral icterus, Lungs: Clear to auscultation and percussion, non-labored respiration. Heart: Normal rate, regular rhythm, no murmur, gallop or edema. Abdomen: Soft, non-tender, non-distended, normal bowel sounds, no masses. Gravid uterus with crust just below the umbilicus. Musculoskeletal: Normal range of motion and strength, no tenderness or swelling. Skin: Skin is warm, dry and pink, no rashes or lesions. Neurologic: Awake, alert, and oriented X3, CN II-XII intact. Psychiatric: Cooperative, appropriate mood and affect.? Following the conclusion of the examination, I have washed my hands thoroughly after removing examination gloves. Constitutional Vital Signs, click to edit/add: Last Vital Signs Temp 98.3 F 01/10/25 19:48 Pulse 71 01/10/25 19:48 Resp 16 01/10/25 19:48 BP 110/71 01/10/25 19:48 Pulse Ox 100 01/10/25 19:48 O2 Del Method Room Air 01/10/25 19:48 Course Reevaluation(s) Reevaluation #1: Patient feeling much better. She is no longer nauseated. We discussed the resu lts of all of her testing. She states that she feels satisfied knowing that the child has a good heart tone and that she got to see movement. The patient states she feels comfortable going home and will do Zofran for home and have her do a clear liquid diet advance as tolerated. The patient was informed if symptoms worsen or change she should return to the ER soon as possible for fu rther evaluation and treatment. Time: 22:07 Vital Signs Vital signs: Vital Signs Temperature 98.3 F 01/10/25 19:48 Pulse Rate 71 01/10/25 19:48 Respiratory Rate 16 01/10/25 19:48 Blood Pressure 110/71 01/10/25 19:48 Pulse Oximetry 100 01/10/25 19:48 Oxygen Delivery Method Room Air 01/10/25 19:48 Temperature 98.3 F 01/10/25 19:48 Pulse Rate 71 01/10/25 19:48 Respiratory Rate 16 01/10/25 19:48 Blood Pressure 110/71 01/10/25 19:48 Pulse Oximetry 100 01/10/25 19:48 Oxygen Delivery Method Room Air 01/10/25 19:48 Medical Decision Making Differential Diagnosis Differential Diagnosis: COVID, influenza, RSV, strep, viral illness, gastroenteritis, dehydration Medical Records Medical records reviewed: Yes I reviewed the patient's medical records Lab Data Lab results reviewed: Yes I reviewed the patient's lab results Lab results narrative: No evidence of any viral losses. Labs: Lab Results 01/10/25 Range/Units 21:00 Influenza Type A Ag Negative Influenza Type B Ag Negative SARS-CoV-2 Ag (CV2AG) Negative (NEGATIVE) Streptococcus Screen Negative Discharge Plan Discharge Chief Complaint: Abdominal Pain Clinical Impression: Viral illness, Second trimester Patient Disposition: Home, Self-Care Time of Disposition Decision: 22:12 Condition: Good Mode of Transportation: Private Vehicle Prescriptions / Home Meds: New ondansetron 4 mg tablet,disintegrating 4 mg PO Q6H PRN (Reason: nausea and vomiting) Qty: 14 0RF No Action albuterol sulfate 90 mcg/actuation HFA aerosol inhaler 2 puff INHALATION Q4H PRN (Reason: shortness of breath or wheezing) Print Language: [place] Instructions: (ED), Viral Syndrome (ED) Additional Instructions: Thank you for trusting me with your care today. I am glad you are feeling better. I recommend aggressively hydrating yourself with the clear liquids is much as you can. Advance your diet as tolerated. It may take up for a week for you to begin to feel completely better. Referrals: [facility] [Primary Care Provider] - 1 week Discharge Date/Time: 01/10/25 22:24 Procedures ED US Ultrasound Pelvic Ultrasound Pelvic exam #1: Status: positive Anatomical areas examined: uterus Indications: evalutation for intrauterine (Specifically I was looking for heart tones and movement.) Exam type: limited transabdominal ultrasound Impression: normal exam and live IUP Description/Findings: Patient had a single live intrauterine with heart tones 156 beats a minute. The fetus was actively moving during the examination.
== END 2025-01-10 22:24 | disposition home or self-care (01) ==
PROVIDERS: Emergency Provider Emergency Medicine
DX: O98.512 Other viral diseases complicating pregnancy, second trimester (principal); B34.9 Viral infection, unspecified; Z3A.16 16 weeks gestation of pregnancy
CPT/HCPCS: 87070; 87804; 87811; 87880; 99283; Q0162